=== PATIENT | male | born 1955 | race Caucasian/White ===

== ENCOUNTER 2016-12-03 17:42 | Emergency (ER) | payer OTHER ==
[2016-12-03 19:47] LABS: BASO % 0.5 % (0.0-1.0); EOS # 0.1 K/mm3 (0.0-0.50); EOS % 1.2 % (0.0-3.0); LARGE UNSTAINED CELL # 0.2 K/mm3 (0.0-0.4); LARGE UNSTAINED CELL % 2.1 % (0.0-4.0); LYMPH # 1.7 K/mm3 (1.5-4.5); MEAN CORPUSCULAR HEMOGLOBIN 30.4 pg (27.0-33.0); MEAN CORPUSCULAR VOLUME 86.6 fl (80.0-96.0); MONO # 0.6 K/mm3 (0.0-0.8); MONO % 7.5 % (0.0-5.0); NEUTROPHILS % 65.6 % (36.0-66.0); PLATELET COUNT, AUTOMATED 248 k/mm3 (150-450); RED CELL DISTRIBUTION WIDTH 12.2 % (11.5-14.5); WHITE BLOOD COUNT 7.6 K/mm3 (4.0-10.0)
[2016-12-03 20:20] LABS: ALBUMIN 4.2 GM/DL (3.2-5.2); ALBUMIN/GLOBULIN RATIO 1.08 (1.00-1.93); ALKALINE PHOSPHATASE 45 U/L (45-117); ALT/SGPT 33 U/L (12-78); ANION GAP 11 MEQ/L (8-16); AST/SGOT 23 U/L (15-37); BILIRUBIN,DIRECT 0.2 MG/DL (0.0-0.2); BILIRUBIN,TOTAL 0.8 MG/DL (0.2-1.0); BLOOD UREA NITROGEN 11 MG/DL (7-18); CALCIUM LEVEL 9.1 MG/DL (8.8-10.2); CARBON DIOXIDE LEVEL 23 MEQ/L (21-32); CHLORIDE LEVEL 105 MEQ/L (98-107); CREATININE FOR GFR 1.21 MG/DL (0.70-1.30); GLOMERULAR FILTRATION RATE > 60.0 (>49); GLUCOSE, FASTING 89 MG/DL (80-110); POTASSIUM SERUM 3.7 MEQ/L (3.5-5.1); SODIUM LEVEL 139 MEQ/L (136-145); TOTAL PROTEIN 8.1 GM/DL (6.4-8.2)
--- NOTE | 2016-12-03 21:07 | EDDOCDS ---
Physician Documentation [facility] Name: Sam Carrasquillo Age: 61 yrs Sex: Male : 1955 Arrival Date: 12/03/2016 Time: 17:42 Bed I2 / M2 Private MD: Oneida Disposition: 12/03/16 20:43 Discharged to Home/Self Care. Impression: Malaise and fatigue. - Condition is Stable. - Discharge Instructions: Dehydration, Adult, Weakness. - Medication Reconciliation, Local Pharmacy Hours form. - Follow up: Oneida; When: Call to arrange an appointment; Reason: Recheck today's complaints, Continuance of care. - Problem is new. - Symptoms are unchanged. Historical: - Allergies: Tttveov-Hft-Aeu Reductase Inhibitors; - Home Meds: 1. levothyroxine 50 mcg Oral tab 1 tab once daily - PMHx: Hypercholesterolemia; Hypertension; Hypothyroidism; - PSHx: Vasectomy; - Social history: Smoking status: Patient states was never smoker of tobacco. No barriers to communication noted, The patient speaks fluent Dominican, Speaks appropriately for age. - Family history: Not pertinent. - : The pt / caregiver states he / she is not on anticoagulants. Home medication list is obtained from the patient. - Exposure Risk Screening:: None identified. Vital Signs: 12/03 17:43 BP 147 / 91; Pulse 91; Resp 18 S; Temp 97.3(O); Pulse Ox 97% on R/A; Weight 145.15 kg / dd6 320 lbs (R); Height 5 ft. 8 in. (172.72 cm) (R); 20:57 BP 152 / 87; Pulse 68; Resp 18; Temp 98(O); Pulse Ox 96% on R/A; Pain 0/10; rs3 17:43 Body Mass Index 48.66 (145.15 kg, 172.72 cm) dd6 MDM: 19:12 Financial registration complete. gjb 19:12 IV Saline Lock ordered. mo1 19:12 Undress patient appropriately for examination ordered. mo1 19:12 NS 0.9% 1000 ml IV at bolus once ordered. mo1 19:13 Basic Metabolic Profile Ordered. EDMS 19:13 CBC with Diff Ordered. EDMS 19:13 Cardiac Injury Profile Ordered. EDMS 19:13 Troponin Ordered. EDMS 19:13 Liver Profile Ordered. EDMS 19:13 ECG WITH READING ER PHYS+CARDIAG ordered. EDMS 19:26 UA Ordered. EDMS 19:47 [facility] Payment Agreement was scanned into [employer] and attached to record. gjb 20:27 CBC with Diff Reviewed. mo1 20:27 Basic Metabolic Profile Reviewed. mo1 20:28 Cardiac Injury Profile Reviewed. mo1 20:28 Troponin Reviewed. mo1 20:28 Liver Profile Reviewed. mo1 20:29 UA Reviewed. mo1 Administered Medications: 19:40 Drug: NS 0.9% 1000 ml [sodium chloride 0.9 % intravenous solution] Route: IV; Rate: rs3 bolus; Site: right antecubital; Signatures: Dispatcher [employer] EDMS Meche Cannon RN RN rs3 Lauren Jurado RN RN hs1 Maurisio Bravo PA PA mo1 Elizabeth Andre The chart was reviewed and I authenticate all verbal orders and agree with the evaluation and treatment provided.Attachments: 19:47 [facility] Payment Agreement gjb MTDD
--- NOTE | 2016-12-03 21:07 | EDDOCDS ---
Nurse's Notes [facility] Name: Sam Carrasquillo Age: 61 yrs Sex: Male : 1955 Arrival Date: 12/03/2016 Time: 17:42 Bed I2 / M2 Private MD: Oneida Diagnosis: Malaise and fatigue Presentation: 12/03 17:47 Presenting complaint: Patient states: Dr Oconnor called patient to come in to be seen hs1 by ER. Patient states he was having problems with taking medication and was told his CPK was high. Patient was told that he needed to come be seen and evaluated. The last date and time the patient was known to be well was was at an unknown time on October 2016. No acute neurological deficit is noted. Pre-hospital glucose is not applicable to this patient. Adult Sepsis Screening: The patient does not have new or worsening altered mentation. Patient's respiratory rate is less than 22. Systolic blood pressure is greater than 100. Patient has a qSOFA score of 0- Negative Sepsis Screen. Suicide/Homicide risk assessment- the patient denies having any suicidal and/or homicidal ideations and does not present with any other emotional, behavioral or mental health complaints. Status: Patient is not a director financial services or dependent. Transition of care: patient was not received from another setting of care. 17:47 Acuity: SIN Level 3 hs1 17:47 Method Of Arrival: Walkin/Carried/Asstd hs1 Triage Assessment: 17:49 The onset of the patients symptoms was more than three hours ago. General: Appears in hs1 no apparent distress, Behavior is appropriate for age, cooperative. Pain: Denies pain. HIV screening NA for this visit Offered previously. Neurological: Level of Consciousness is awake, alert, obeys commands, Oriented to person, place, time, Energy Audit Advisor are equal bilaterally Moves all extremities. Gait is steady, Reports weakness "feeling lousy". Historical: - Allergies: Lhekhkc-Hsw-Yab Reductase Inhibitors; - Home Meds: 1. levothyroxine 50 mcg Oral tab 1 tab once daily - PMHx: Hypercholesterolemia; Hypertension; Hypothyroidism; - PSHx: Vasectomy; - Social history: Smoking status: Patient states was never smoker of tobacco. No barriers to communication noted, The patient speaks fluent Yoruba, Speaks appropriately for age. - Family history: Not pertinent. - : The pt / caregiver states he / she is not on anticoagulants. Home medication list is obtained from the patient. - Exposure Risk Screening:: None identified. Screenin:51 Screening information is obtained from the patient. Fall risk: No risks identified. rs3 Assistance ADL's: requires no assistance with activities of daily living. Abuse/DV Screen: The patient / caregiver reports he/she is: not in a situation that causes fear, pain or injury. Nutritional screening: No deficits noted. Advance Directives: Currently, there is no health care proxy. There is no active DNR order. home support is adequate. 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 Dalton, states that she requests IV hydration. ml6 19:41 General: Appears in no apparent distress, Behavior is appropriate for age, cooperative. rs3 Pain: Denies pain. Neurological: Level of Consciousness is awake, alert, Oriented to person, place, time. Cardiovascular: Capillary refill < 3 seconds Heart tones S1 S2 present. Respiratory: Airway is patent Respiratory effort is even, unlabored, Respiratory pattern is regular, symmetrical, Breath sounds are clear bilaterally. Derm: Skin is pink, warm & dry. 20:51 Reassessment: Patient appears in no apparent distress at this time. Patient denies pain rs3 at this time. Patient states feeling better. Patient states symptoms have improved. Vital Signs: 17:43 BP 147 / 91; Pulse 91; Resp 18 S; Temp 97.3(O); Pulse Ox 97% on R/A; Weight 145.15 kg dd6 (R); Height 5 ft. 8 in. (172.72 cm) (R); 20:57 BP 152 / 87; Pulse 68; Resp 18; Temp 98(O); Pulse Ox 96% on R/A; Pain 0/10; rs3 17:43 Body Mass Index 48.66 (145.15 kg, 172.72 cm) dd6 Vitals: 17:43 Log In Time: December 03, 2016 at 17:41. dd6 21:06 Glucose Measurement D-stick deferred by provider. rs3 ED Course: 17:43 Patient visited by Srinivas Mejia, JERILYN. dd6 17:43 Oneida is Private Physician. dd6 17:43 Patient moved to Waiting dd6 17:44 Patient moved to Pre RCE dd6 17:48 Triage Initiated hs1 18:58 Patient moved to Triage 3 pml 19:02 Maurisio Bravo PA is PHCP. mo1 19:02 Enrique Lyles DO is Attending Physician. mo1 19:03 Patient visited by Maurisio Bravo PA. mo1 19:13 Patient moved to I2 / M2 jmb 19:21 Patient visited by Pippa Sherman PCA. mary grace 19:21 EKG done. (by ED staff). Reviewed by Maurisio ANGELES. mary grace 19:40 Troponin Sent. rs3 19:40 Cardiac Injury Profile Sent. rs3 19:40 CBC with Diff Sent. rs3 19:40 Inserted saline lock: 20 gauge in right antecubital area and blood collected. rs3 19:41 Basic Metabolic Profile Sent. rs3 19:41 Liver Profile Sent. rs3 19:47 [facility] [place] [facility] Payment Agreement was scanned into [employer] and attached to record. gjb 20:08 Patient visited by Meche Cannon RN. rs3 20:08 UA Sent. rs3 20:43 Oneida is Referral Physician. mo1 20:51 No procedures done that require assistance. rs3 21:06 The patient / caregiver is instructed regarding the plan of care and ED course. rs3 Administered Medications: 19:40 Drug: NS 0.9% 1000 ml [sodium chloride 0.9 % intravenous solution] Route: IV; Rate: rs3 bolus; Site: right antecubital; Order Results: Lab Order: Basic Metabolic Profile; SPEC' 12/03/16 19:26 Test: GLUCOSE, FASTING; Value: 89; Range: 80-110; Units: MG/DL; Status: F Test: BLOOD UREA NITROGEN; Value: 11; Range: 7-18; Units: MG/DL; Status: F Test: CREATININE FOR GFR; Value: 1.21; Range: 0.70-1.30; Units: MG/DL; Status: F Test: GLOMERULAR FILTRATION RATE; Value: > 60.0; Range: >49; Status: F Test: SODIUM LEVEL; Value: 139; Range: 136-145; Units: MEQ/L; Status: F Test: POTASSIUM SERUM; Value: 3.7; Range: 3.5-5.1; Units: MEQ/L; Status: F Test: CHLORIDE LEVEL; Value: 105; Range: 98-107; Units: MEQ/L; Status: F Test: CARBON DIOXIDE LEVEL; Value: 23; Range: 21-32; Units: MEQ/L; Status: F Test: ANION GAP; Value: 11; Range: 8-16; Units: MEQ/L; Status: F Test: CALCIUM LEVEL; Value: 9.1; Range: 8.8-10.2; Units: MG/DL; Status: F Test Note: ; Units are mL/min/1.73 m2 Chronic Kidney Disease Staging per NKF: Stage I & II GFR >=60 Normal to Mildly Decreased Stage III GFR 30-59 Moderately Decreased Stage IV GFR 15-29 Severely Decreased Stage V GFR <15 Very Little GFR Left ESRD GFR <15 on 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 Lab Order: CBC with Diff; SPEC'M 12/03/16 19:26 Test: WHITE BLOOD COUNT; Value: 7.6; Range: 4.0-10.0; Units: K/mm3; Status: F Test: RED BLOOD COUNT; Value: 5.41; Range: 4.30-6.10; Units: M/mm3; Status: F Test: HEMOGLOBIN; Value: 16.4; Range: 14.0-18.0; Units: g/dl; Status: F Test: HEMATOCRIT; Value: 46.8; Range: 42.0-52.0; Units: %; Status: F Test: MEAN CORPUSCULAR VOLUME; Value: 86.6; Range: 80.0-96.0; Units: fl; Status: F Test: MEAN CORPUSCULAR HEMOGLOBIN; Value: 30.4; Range: 27.0-33.0; Units: pg; Status: F Test: MEAN CORPUSCULAR HGB CONC; Value: 35.0; Range: 32.0-36.5; Units: g/dl; Status: F Test: RED CELL DISTRIBUTION WIDTH; Value: 12.2; Range: 11.5-14.5; Units: %; Status: F Test: PLATELET COUNT, AUTOMATED; Value: 248; Range: 150-450; Units: k/mm3; Status: F Test: NEUTROPHILS %; Value: 65.6; Range: 36.0-66.0; Units: %; Status: F Test: LYMPH %; Value: 23.0; Range: 24.0-44.0; Abnormal: Below low normal; Units: %; Status: F Test: MONO %; Value: 7.5; Range: 0.0-5.0; Abnormal: Above high normal; Units: %; Status: F Test: EOS %; Value: 1.2; Range: 0.0-3.0; Units: %; Status: F Test: BASO %; Value: 0.5; Range: 0.0-1.0; Units: %; Status: F Test: LARGE UNSTAINED CELL %; Value: 2.1; Range: 0.0-4.0; Units: %; Status: F Test: NEUTROPHILS #; Value: 5.0; Range: 1.8-7.7; Units: K/mm3; Status: F Test: LYMPH #; Value: 1.7; Range: 1.5-4.5; Units: K/mm3; Status: F Test: MONO #; Value: 0.6; Range: 0.0-0.8; Units: K/mm3; Status: F Test: EOS #; Value: 0.1; Range: 0.0-0.50; Units: K/mm3; Status: F Test: BASO #; Value: 0.0; Range: 0.0-0.2; Units: K/mm3; Status: F Test: LARGE UNSTAINED CELL #; Value: 0.2; Range: 0.0-0.4; Units: K/mm3; Status: F Lab Order: Cardiac Injury Profile; SPEC'M 12/03/16 19:26 Test: CPK CREATINE PHOSPHOKINASE; Value: 205; Range: 39-308; Units: U/L; Status: F Test: CK-MB VALUE MASS; Value: 1.4; Range: 0.0-3.6; Units: NG/ML; Status: F Test: MB/CK RELATIVE INDEX; Value: 0.68; Range: < OR =4; Status: F Test Note: ; DIAGNOSIS CRITERIA MMB ng/ml Relative Index (RI) NON-AMI < or = 5 N/A JEAN ZONE > 5 < or = 4 AMI > 5 > 4 Lab Order: Troponin; SPEC'M 12/03/16 19:26 Test: TROPONIN I; Value: < 0.02; Range: < 0.10; Units: NG/ML; Status: F Test Note: ; Troponin I Reference Interval for [employer] [place] LOCI: 99th Percentile= 0.00-0.045 ng/ml Risk Stratification: <= 0.10 ng/ml Decreased Risk for Adverse Clinical Events. 0.10-1.50 ng/ml Increased Risk for Adverse Clinical Events. Evaluation of additional criterion and/or repeat testing in 2-6 hours is suggested to rule out myocardial damage. >= 1.50 ng/ml Indicative of Myocardial Injury. Lab Order: Liver Profile; SPEC'M 12/03/16 19:26 Test: AST/SGOT; Value: 23; Range: 15-37; Units: U/L; Status: F Test: ALT/SGPT; Value: 33; Range: 12-78; Units: U/L; Status: F Test: ALKALINE PHOSPHATASE; Value: 45; Range: 45-117; Units: U/L; Status: F Test: BILIRUBIN,TOTAL; Value: 0.8; Range: 0.2-1.0; Units: MG/DL; Status: F Test: BILIRUBIN,DIRECT; Value: 0.2; Range: 0.0-0.2; Units: MG/DL; Status: F Test: TOTAL PROTEIN; Value: 8.1; Range: 6.4-8.2; Units: GM/DL; Status: F Test: ALBUMIN; Value: 4.2; Range: 3.2-5.2; Units: GM/DL; Status: F Test: ALBUMIN/GLOBULIN RATIO; Value: 1.08; Range: 1.00-1.93; Status: F Lab Order: UA; SPEC'M 12/03/16 20:03 Test: APPEARANCE, URINE; Value: CLEAR; Range: CLEAR; Status: F Test: COLOR, URINE; Value: STRAW; Range: YELLOW; Status: F Test: PH,URINE; Value: 6.0; Range: 5.0-9.0; Units: UNITS; Status: F Test: SPECIFIC GRAVITY URINE AUTO; Value: 1.004; Range: 1.002-1.035; Status: F Test: PROTEIN, URINE AUTO; Value: NEGATIVE; Range: NEGATIVE; Units: mg/dL; Status: F Test: GLUCOSE, URINE (UA) AUTO; Value: NEGATIVE; Range: NEGATIVE; Units: mg/dL; Status: F Test: KETONE, URINE AUTO; Value: NEGATIVE; Range: NEGATIVE; Units: mg/dL; Status: F Test: UROBILINOGEN, URINE AUTO; Value: 0.2; Range: 0.0-2.0; Units: mg/dL; Status: F Test: BILIRUBIN, URINE AUTO; Value: NEGATIVE; Range: NEGATIVE; Status: F Test: NITRITE, URINE AUTO; Value: NEGATIVE; Range: NEGATIVE; Status: F Test: LEUKOCYTE ESTERASE, URINE AUTO; Value: NEGATIVE; Range: NEGATIVE; Status: F Test: BLOOD, URINE BLOOD; Value: NEGATIVE; Range: NEGATIVE; Status: F Test: WBC, URINE AUTO; Value: 0; Range: 0-3; Units: /HPF; Status: F Test: RBC, URINE AUTO; Value: 0; Range: 0-3; Units: /HPF; Status: F Test: BACTERIA, URINE AUTO; Value: NEGATIVE; Range: NEGATIVE; Status: F Test: SQUAMOUS EPITHELIAL CELL UR AU; Value: 0; Range: 0-6; Units: /HPF; Status: F Test: HYALINE CAST, URINE AUTO; Value: 0; Range: 0-1; Units: /LPF; Status: F Outcome: 20:43 Discharge ordered by Provider. mo1 21:06 Discharge Assessment: patient administered narcotics - no. The following High Risk rs3 Discharge criteria are identified: None. Discharged to home with family. Condition: stable. Discharge instructions given to patient, Instructed on discharge instructions, follow up and referral plans. medication usage, Demonstrated understanding of instructions, medications, Pt was receptive of discharge instructions/ teaching. No special radiology studies were completed. Property :Personal belongings accompany Pt. 21:07 Patient left the ED. rs3 Signatures: Srinivas Mejia, HEAT REGULATOR HEAT REGULATOR dd6 Meche Cannon RN RN rs3 Tristan Olivera RN RN ml6 Lauren Jurado RN RN hs1 Pippa Sherman, HEAT REGULATOR HEAT REGULATOR mary grace Haven Colin RN RN pml O'Hagan, Michael, PA PA mo1 Kirit Hickman RN RN jmb Beck, Gabriela gjb MTDD
--- NOTE | 2016-12-03 22:05 | ECGEPIP ---
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
--- NOTE | 2016-12-05 22:08 | EDDOCDS ---
Physician Documentation [facility] Name: Sam Carrasquillo Age: 61 yrs Sex: Male : 1955 Arrival Date: 12/03/2016 Time: 17:42 Bed I2 / M2 Private MD: Oneida Disposition: 12/03/16 20:43 Discharged to Home/Self Care. Impression: Malaise and fatigue. - Condition is Stable. - Discharge Instructions: Dehydration, Adult, Weakness. - Medication Reconciliation, Local Pharmacy Hours form. - Follow up: Oneida; When: Call to arrange an appointment; Reason: Recheck today's complaints, Continuance of care. - Problem is new. - Symptoms are unchanged. Historical: - Allergies: Ovoltxj-Ycu-Gso Reductase Inhibitors; - Home Meds: 1. levothyroxine 50 mcg Oral tab 1 tab once daily - PMHx: Hypercholesterolemia; Hypertension; Hypothyroidism; - PSHx: Vasectomy; - Social history: Smoking status: Patient states was never smoker of tobacco. No barriers to communication noted, The patient speaks fluent Wallisian, Speaks appropriately for age. - Family history: Not pertinent. - : The pt / caregiver states he / she is not on anticoagulants. Home medication list is obtained from the patient. - Exposure Risk Screening:: None identified. Vital Signs: 12/03 17:43 BP 147 / 91; Pulse 91; Resp 18 S; Temp 97.3(O); Pulse Ox 97% on R/A; Weight 145.15 kg / dd6 320 lbs (R); Height 5 ft. 8 in. (172.72 cm) (R); 20:57 BP 152 / 87; Pulse 68; Resp 18; Temp 98(O); Pulse Ox 96% on R/A; Pain 0/10; rs3 17:43 Body Mass Index 48.66 (145.15 kg, 172.72 cm) dd6 MDM: 19:12 Financial registration complete. gjb 19:12 IV Saline Lock ordered. mo1 19:12 Undress patient appropriately for examination ordered. mo1 19:12 NS 0.9% 1000 ml IV at bolus once ordered. mo1 19:13 Basic Metabolic Profile Ordered. EDMS 19:13 CBC with Diff Ordered. EDMS 19:13 Cardiac Injury Profile Ordered. EDMS 19:13 Troponin Ordered. EDMS 19:13 Liver Profile Ordered. EDMS 19:13 ECG WITH READING ER PHYS+CARDIAG ordered. EDMS 19:26 UA Ordered. EDMS 19:47 [facility] Payment Agreement was scanned into [employer] and attached to record. gjb 20:27 CBC with Diff Reviewed. mo1 20:27 Basic Metabolic Profile Reviewed. mo1 20:28 Cardiac Injury Profile Reviewed. mo1 20:28 Troponin Reviewed. mo1 20:28 Liver Profile Reviewed. mo1 20:29 UA Reviewed. mo1 12/04 12:41 T-Sheet-- Draft Copy was scanned into [employer] and attached to record. gb 12:41 ECG/EKG was scanned into [employer] and attached to record. gb Administered Medications: 12/03 19:40 Drug: NS 0.9% 1000 ml [sodium chloride 0.9 % intravenous solution] Route: IV; Rate: rs3 bolus; Site: right antecubital; Signatures: Dispatcher [employer] EDMS Roseann Tanner, Reg Reg gb Meche Cannon RN RN rs3 Lauren Jurado RN RN hs1 Maurisio Bravo PA PA mo1 Elizabeth Andre The chart was reviewed and I authenticate all verbal orders and agree with the evaluation and treatment provided.Attachments: :47 [facility] Payment Agreement gjb 12/04 12:41 T-Sheet-- Draft Copy gb 12:41 ECG/EKG gb Chart Complete MTDD
--- NOTE | 2016-12-05 22:08 | EDDOCDS ---
Nurse's Notes [facility] Name: Caren Liu Age: 61 yrs Sex: Male : 1955 Arrival Date: 12/03/2016 Time: 17:42 Bed I2 / M2 Private MD: Oneida Diagnosis: Malaise and fatigue Presentation: 12/03 17:47 Presenting complaint: Patient states: Dr Oconnor called patient to come in to be seen hs1 by ER. Patient states he was having problems with taking medication and was told his CPK was high. Patient was told that he needed to come be seen and evaluated. The last date and time the patient was known to be well was was at an unknown time on October 2016. No acute neurological deficit is noted. Pre-hospital glucose is not applicable to this patient. Adult Sepsis Screening: The patient does not have new or worsening altered mentation. Patient's respiratory rate is less than 22. Systolic blood pressure is greater than 100. Patient has a qSOFA score of 0- Negative Sepsis Screen. Suicide/Homicide risk assessment- the patient denies having any suicidal and/or homicidal ideations and does not present with any other emotional, behavioral or mental health complaints. Status: Patient is not a center customer service associate or dependent. Transition of care: patient was not received from another setting of care. 17:47 Acuity: SIN Level 3 hs1 17:47 Method Of Arrival: Walkin/Carried/Asstd hs1 Triage Assessment: 17:49 The onset of the patients symptoms was more than three hours ago. General: Appears in hs1 no apparent distress, Behavior is appropriate for age, cooperative. Pain: Denies pain. HIV screening NA for this visit Offered previously. Neurological: Level of Consciousness is awake, alert, obeys commands, Oriented to person, place, time, Dean Of Women are equal bilaterally Moves all extremities. Gait is steady, Reports weakness "feeling lousy". Historical: - Allergies: Rxweydh-Hlx-Uil Reductase Inhibitors; - Home Meds: 1. levothyroxine 50 mcg Oral tab 1 tab once daily - PMHx: Hypercholesterolemia; Hypertension; Hypothyroidism; - PSHx: Vasectomy; - Social history: Smoking status: Patient states was never smoker of tobacco. No barriers to communication noted, The patient speaks fluent Danish, Speaks appropriately for age. - Family history: Not pertinent. - : The pt / caregiver states he / she is not on anticoagulants. Home medication list is obtained from the patient. - Exposure Risk Screening:: None identified. Screenin:51 Screening information is obtained from the patient. Fall risk: No risks identified. rs3 Assistance ADL's: requires no assistance with activities of daily living. Abuse/DV Screen: The patient / caregiver reports he/she is: not in a situation that causes fear, pain or injury. Nutritional screening: No deficits noted. Advance Directives: Currently, there is no health care proxy. There is no active DNR order. home support is adequate. 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 ml6 19:41 General: Appears in no apparent distress, Behavior is appropriate for age, cooperative. rs3 Pain: Denies pain. Neurological: Level of Consciousness is awake, alert, Oriented to person, place, time. Cardiovascular: Capillary refill < 3 seconds Heart tones S1 S2 present. Respiratory: Airway is patent Respiratory effort is even, unlabored, Respiratory pattern is regular, symmetrical, Breath sounds are clear bilaterally. Derm: Skin is pink, warm & dry. 20:51 Reassessment: Patient appears in no apparent distress at this time. Patient denies pain rs3 at this time. Patient states feeling better. Patient states symptoms have improved. Vital Signs: 17:43 BP 147 / 91; Pulse 91; Resp 18 S; Temp 97.3(O); Pulse Ox 97% on R/A; Weight 145.15 kg dd6 (R); Height 5 ft. 8 in. (172.72 cm) (R); 20:57 BP 152 / 87; Pulse 68; Resp 18; Temp 98(O); Pulse Ox 96% on R/A; Pain 0/10; rs3 17:43 Body Mass Index 48.66 (145.15 kg, 172.72 cm) dd6 Vitals: 17:43 Log In Time: December 03, 2016 at 17:41. dd6 21:06 Glucose Measurement D-stick deferred by provider. rs3 ED Course: 17:43 Patient visited by Srinivas Mejia, JERILYN. dd6 17:43 Oneida is Private Physician. dd6 17:43 Patient moved to Waiting dd6 17:44 Patient moved to Pre RCE dd6 17:48 Triage Initiated hs1 18:58 Patient moved to Triage 3 pml 19:02 Dakotah Bravo PA is PHCP. mo1 19:02 Enrique Lyles DO is Attending Physician. mo1 19:03 Patient visited by Dakotah Bravo PA. mo1 19:13 Patient moved to I2 / M2 jmb 19:21 Patient visited by Pippa Sherman PCA. mary grace 19:21 EKG done. (by ED staff). Reviewed by Dakotah ANGELES. mary grace 19:40 Troponin Sent. rs3 19:40 Cardiac Injury Profile Sent. rs3 19:40 CBC with Diff Sent. rs3 19:40 Inserted saline lock: 20 gauge in right antecubital area and blood collected. rs3 19:41 Basic Metabolic Profile Sent. rs3 19:41 Liver Profile Sent. rs3 19:47 [facility] Payment Agreement was scanned into [employer] and attached to record. gjb 20:08 Patient visited by Meche Cannon RN. rs3 20:08 UA Sent. rs3 20:43 Oneida is Referral Physician. mo1 20:51 No procedures done that require assistance. rs3 21:06 The patient / caregiver is instructed regarding the plan of care and ED course. rs3 22:08 EKG-ADULT Returned. EDMS 12/04 12:41 T-Sheet-- Draft Copy was scanned into [employer] and attached to record. gb 12:41 ECG/EKG was scanned into [employer] and attached to record. gb Administered Medications: 12/03 19:40 Drug: NS 0.9% 1000 ml [sodium chloride 0.9 % intravenous solution] Route: IV; Rate: rs3 bolus; Site: right antecubital; Order Results: Lab Order: Basic Metabolic Profile; SPEC'M 12/03/16 19:26 Test: GLUCOSE, FASTING; Value: 89; Range: 80-110; Units: MG/DL; Status: F Test: BLOOD UREA NITROGEN; Value: 11; Range: 7-18; Units: MG/DL; Status: F Test: CREATININE FOR GFR; Value: 1.21; Range: 0.70-1.30; Units: MG/DL; Status: F Test: GLOMERULAR FILTRATION RATE; Value: > 60.0; Range: >49; Status: F Test: SODIUM LEVEL; Value: 139; Range: 136-145; Units: MEQ/L; Status: F Test: POTASSIUM SERUM; Value: 3.7; Range: 3.5-5.1; Units: MEQ/L; Status: F Test: CHLORIDE LEVEL; Value: 105; Range: 98-107; Units: MEQ/L; Status: F Test: CARBON DIOXIDE LEVEL; Value: 23; Range: 21-32; Units: MEQ/L; Status: F Test: ANION GAP; Value: 11; Range: 8-16; Units: MEQ/L; Status: F Test: CALCIUM LEVEL; Value: 9.1; Range: 8.8-10.2; Units: MG/DL; Status: F Test Note: ; Units are mL/min/1.73 m2 Chronic Kidney Disease Staging per NKF: Stage I & II GFR >=60 Normal to Mildly Decreased Stage III GFR 30-59 Moderately Decreased Stage IV GFR 15-29 Severely Decreased Stage V GFR <15 Very Little GFR Left ESRD GFR <15 on [employer] Lab Order: CBC with Diff; SPEC'M 12/03/16 19:26 Test: WHITE BLOOD COUNT; Value: 7.6; Range: 4.0-10.0; Units: K/mm3; Status: F Test: RED BLOOD COUNT; Value: 5.41; Range: 4.30-6.10; Units: M/mm3; Status: F Test: HEMOGLOBIN; Value: 16.4; Range: 14.0-18.0; Units: g/dl; Status: F Test: HEMATOCRIT; Value: 46.8; Range: 42.0-52.0; Units: %; Status: F Test: MEAN CORPUSCULAR VOLUME; Value: 86.6; Range: 80.0-96.0; Units: fl; Status: F Test: MEAN CORPUSCULAR HEMOGLOBIN; Value: 30.4; Range: 27.0-33.0; Units: pg; Status: F Test: MEAN CORPUSCULAR HGB CONC; Value: 35.0; Range: 32.0-36.5; Units: g/dl; Status: F Test: RED CELL DISTRIBUTION WIDTH; Value: 12.2; Range: 11.5-14.5; Units: %; Status: F Test: PLATELET COUNT, AUTOMATED; Value: 248; Range: 150-450; Units: k/mm3; Status: F Test: NEUTROPHILS %; Value: 65.6; Range: 36.0-66.0; Units: %; Status: F Test: LYMPH %; Value: 23.0; Range: 24.0-44.0; Abnormal: Below low normal; Units: %; Status: F Test: MONO %; Value: 7.5; Range: 0.0-5.0; Abnormal: Above high normal; Units: %; Status: F Test: EOS %; Value: 1.2; Range: 0.0-3.0; Units: %; Status: F Test: BASO %; Value: 0.5; Range: 0.0-1.0; Units: %; Status: F Test: LARGE UNSTAINED CELL %; Value: 2.1; Range: 0.0-4.0; Units: %; Status: F Test: NEUTROPHILS #; Value: 5.0; Range: 1.8-7.7; Units: K/mm3; Status: F Test: LYMPH #; Value: 1.7; Range: 1.5-4.5; Units: K/mm3; Status: F Test: MONO #; Value: 0.6; Range: 0.0-0.8; Units: K/mm3; Status: F Test: EOS #; Value: 0.1; Range: 0.0-0.50; Units: K/mm3; Status: F Test: BASO #; Value: 0.0; Range: 0.0-0.2; Units: K/mm3; Status: F Test: LARGE UNSTAINED CELL #; Value: 0.2; Range: 0.0-0.4; Units: K/mm3; Status: F Lab Order: Cardiac Injury Profile; SPEC'M 12/03/16 19:26 Test: CPK CREATINE PHOSPHOKINASE; Value: 205; Range: 39-308; Units: U/L; Status: F Test: CK-MB VALUE MASS; Value: 1.4; Range: 0.0-3.6; Units: NG/ML; Status: F Test: MB/CK RELATIVE INDEX; Value: 0.68; Range: < OR =4; Status: F Test Note: ; DIAGNOSIS CRITERIA MMB ng/ml Relative Index (RI) NON-AMI < or = 5 N/A JEAN ZONE > 5 < or = 4 AMI > 5 > 4 Lab Order: Troponin; [facility]' 12/03/16 19:26 Test: TROPONIN I; Value: < 0.02; Range: < 0.10; Units: NG/ML; Status: F Test Note: ; Troponin I Reference Interval for Siemens Vaultize LOCI: 99th Percentile= 0.00-0.045 ng/ml Risk Stratification: <= 0.10 ng/ml Decreased Risk for Adverse Clinical Events. 0.10-1.50 ng/ml Increased Risk for Adverse Clinical Events. Evaluation of additional criterion and/or repeat testing in 2-6 hours is suggested to rule out myocardial damage. >= 1.50 ng/ml Indicative of Myocardial Injury. Lab Order: Liver Profile; SPEC' 12/03/16 19:26 Test: AST/SGOT; Value: 23; Range: 15-37; Units: U/L; Status: F Test: ALT/SGPT; Value: 33; Range: 12-78; Units: U/L; Status: F Test: ALKALINE PHOSPHATASE; Value: 45; Range: 45-117; Units: U/L; Status: F Test: BILIRUBIN,TOTAL; Value: 0.8; Range: 0.2-1.0; Units: MG/DL; Status: F Test: BILIRUBIN,DIRECT; Value: 0.2; Range: 0.0-0.2; Units: MG/DL; Status: F Test: TOTAL PROTEIN; Value: 8.1; Range: 6.4-8.2; Units: GM/DL; Status: F Test: ALBUMIN; Value: 4.2; Range: 3.2-5.2; Units: GM/DL; Status: F Test: ALBUMIN/GLOBULIN RATIO; Value: 1.08; Range: 1.00-1.93; Status: F Lab Order: UA; SPEC' 12/03/16 20:03 Test: APPEARANCE, URINE; Value: CLEAR; Range: CLEAR; Status: F Test: COLOR, URINE; Value: STRAW; Range: YELLOW; Status: F Test: PH,URINE; Value: 6.0; Range: 5.0-9.0; Units: UNITS; Status: F Test: SPECIFIC GRAVITY URINE AUTO; Value: 1.004; Range: 1.002-1.035; Status: F Test: PROTEIN, URINE AUTO; Value: NEGATIVE; Range: NEGATIVE; Units: mg/dL; Status: F Test: GLUCOSE, URINE (UA) AUTO; Value: NEGATIVE; Range: NEGATIVE; Units: mg/dL; Status: F Test: KETONE, URINE AUTO; Value: NEGATIVE; Range: NEGATIVE; Units: mg/dL; Status: F Test: UROBILINOGEN, URINE AUTO; Value: 0.2; Range: 0.0-2.0; Units: mg/dL; Status: F Test: BILIRUBIN, URINE AUTO; Value: NEGATIVE; Range: NEGATIVE; Status: F Test: NITRITE, URINE AUTO; Value: NEGATIVE; Range: NEGATIVE; Status: F Test: LEUKOCYTE ESTERASE, URINE AUTO; Value: NEGATIVE; Range: NEGATIVE; Status: F Test: BLOOD, URINE BLOOD; Value: NEGATIVE; Range: NEGATIVE; Status: F Test: WBC, URINE AUTO; Value: 0; Range: 0-3; Units: /HPF; Status: F Test: RBC, URINE AUTO; Value: 0; Range: 0-3; Units: /HPF; Status: F Test: BACTERIA, URINE AUTO; Value: NEGATIVE; Range: NEGATIVE; Status: F Test: SQUAMOUS EPITHELIAL CELL UR AU; Value: 0; Range: 0-6; Units: /HPF; Status: F Test: HYALINE CAST, URINE AUTO; Value: 0; Range: 0-1; Units: /LPF; Status: F Radiology Order: EKG-ADULT Test: EKG-ADULT REASON FOR EXAMINATION: generalized weakness; Stationary ECG Study; [facility] - ED; ; Test Date: 2016-12-03; Pat Name: CAREN LIU Department:; Room: -; Gender: M 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 mo1 21:06 Discharge Assessment: patient administered narcotics - no. The following High Risk rs3 Discharge criteria are identified: None. Discharged to home with family. Condition: stable. Discharge instructions given to patient, Instructed on discharge instructions, follow up and referral plans. medication usage, Demonstrated understanding of instructions, medications, Pt was receptive of discharge instructions/ teaching. No special radiology studies were completed. Property :Personal belongings accompany Pt. 21:07 Patient left the ED. rs3 Signatures: Dispatcher [employer] EDMS Roseann Tanner, Reg Reg gb Srinivas Mejia, REMELTER REMELTER dd6 Meche Cannon,RN RN rs3 Tristan Olivera RN RN ml6 Lauren Jurado RN RN hs1 Pippa Sherman, REMELTER REMELTER mary grace Haven ColinRN RN Dakotah Isaacs PA PA mo1 Kirit Hickman RN RN jmb Beck, Gabriela gjb Chart Complete DAVIS
--- NOTE | 2016-12-05 22:08 | EDDOCDS ---
Physician Documentation [facility] Name: Sam Carrasquillo Age: 61 yrs Sex: Male : 1955 Arrival Date: 12/03/2016 Time: 17:42 Bed I2 / M2 Private MD: Oneida Disposition: 12/03/16 20:43 Discharged to Home/Self Care. Impression: Malaise and fatigue. - Condition is Stable. - Discharge Instructions: Dehydration, Adult, Weakness. - Medication Reconciliation, Local Pharmacy Hours form. - Follow up: Oneida; When: Call to arrange an appointment; Reason: Recheck today's complaints, Continuance of care. - Problem is new. - Symptoms are unchanged. Historical: - Allergies: Fmngusy-Nbx-Pxs Reductase Inhibitors; - Home Meds: 1. levothyroxine 50 mcg Oral tab 1 tab once daily - PMHx: Hypercholesterolemia; Hypertension; Hypothyroidism; - PSHx: Vasectomy; - Social history: Smoking status: Patient states was never smoker of tobacco. No barriers to communication noted, The patient speaks fluent Kazakh, Speaks appropriately for age. - Family history: Not pertinent. - : The pt / caregiver states he / she is not on anticoagulants. Home medication list is obtained from the patient. - Exposure Risk Screening:: None identified. Vital Signs: 12/03 17:43 BP 147 / 91; Pulse 91; Resp 18 S; Temp 97.3(O); Pulse Ox 97% on R/A; Weight 145.15 kg / dd6 320 lbs (R); Height 5 ft. 8 in. (172.72 cm) (R); 20:57 BP 152 / 87; Pulse 68; Resp 18; Temp 98(O); Pulse Ox 96% on R/A; Pain 0/10; rs3 17:43 Body Mass Index 48.66 (145.15 kg, 172.72 cm) dd6 MDM: 19:12 Financial registration complete. gjb 19:12 IV Saline Lock ordered. mo1 19:12 Undress patient appropriately for examination ordered. mo1 19:12 NS 0.9% 1000 ml IV at bolus once ordered. mo1 19:13 Basic Metabolic Profile Ordered. EDMS 19:13 CBC with Diff Ordered. EDMS 19:13 Cardiac Injury Profile Ordered. EDMS 19:13 Troponin Ordered. EDMS 19:13 Liver Profile Ordered. EDMS 19:13 ECG WITH READING ER PHYS+CARDIAG ordered. EDMS 19:26 UA Ordered. EDMS 19:47 [facility] Payment Agreement was scanned into [employer] and attached to record. gjb 20:27 CBC with Diff Reviewed. mo1 20:27 Basic Metabolic Profile Reviewed. mo1 20:28 Cardiac Injury Profile Reviewed. mo1 20:28 Troponin Reviewed. mo1 20:28 Liver Profile Reviewed. mo1 20:29 UA Reviewed. mo1 12/04 12:41 T-Sheet-- Draft Copy was scanned into [employer] and attached to record. gb 12:41 ECG/EKG was scanned into [employer] and attached to record. gb Administered Medications: 12/03 19:40 Drug: NS 0.9% 1000 ml [sodium chloride 0.9 % intravenous solution] Route: IV; Rate: rs3 bolus; Site: right antecubital; Signatures: Dispatcher [employer] EDMS Roseann Tanner, Reg Reg gb Meche Cannon RN RN rs3 Lauren Jurado RN RN hs1 Maurisio Bravo PA PA mo1 Elizabeth Andre The chart was reviewed and I authenticate all verbal orders and agree with the evaluation and treatment provided.Attachments: :47 [facility] Payment Agreement gjb 12/04 12:41 T-Sheet-- Draft Copy gb 12:41 ECG/EKG gb Chart Complete MTDD
== END 2016-12-03 21:07 | disposition home or self-care (01) ==
LOC: M ED 17:42
DX: R53.81 Other malaise (principal); R53.83 Other fatigue; I10 Essential (primary) hypertension; E03.9 Hypothyroidism, unspecified; E78.00 Pure hypercholesterolemia, unspecified; Z79.899 Other long term (current) drug therapy; Z88.8 Allergy status to other drugs, medicaments and biological substances

== ENCOUNTER → 2016-12-11 | Outpatient (CLI) | payer OTHER ==
[2016-12-11 14:18] LABS: CONTROL LINE MONO INT CTR LINE PRESENT
[2016-12-11 14:33] LABS: FREE T4 1.29 NG/DL (0.76-1.46)
[2016-12-13 00:06] LABS: CK TOTAL 150 U/L (24-204)
== END ==
LOC: M SMT 09:55
PROVIDERS: ATTEND Family Medicine
DX: E03.9 Hypothyroidism, unspecified (principal); N40.0 Benign prostatic hyperplasia without lower urinary tract symptoms; R63.4 Abnormal weight loss; M62.82 Rhabdomyolysis

== ENCOUNTER 2016-12-31 14:42 | Emergency (ER) | payer OTHER ==
[~2016-12-31] VITALS: Ht 172.7 cm; Wt 136.1 kg
[2016-12-31 16:46] LABS: BASO % 0.6 % (0.0-1.0); EOS # 0.1 K/mm3 (0.0-0.50); EOS % 1.8 % (0.0-3.0); LARGE UNSTAINED CELL # 0.1 K/mm3 (0.0-0.4); LARGE UNSTAINED CELL % 1.6 % (0.0-4.0); LYMPH # 1.5 K/mm3 (1.5-4.5); LYMPH % 18.3 % (24.0-44.0); MEAN CORPUSCULAR HEMOGLOBIN 30.6 pg (27.0-33.0); MEAN CORPUSCULAR HGB CONC 34.9 g/dl (32.0-36.5); MEAN CORPUSCULAR VOLUME 87.7 fl (80.0-96.0); MONO # 0.5 K/mm3 (0.0-0.8); MONO % 7.2 % (0.0-5.0); NEUTROPHILS # 5.3 K/mm3 (1.8-7.7); NEUTROPHILS % 70.4 % (36.0-66.0); PLATELET COUNT, AUTOMATED 215 k/mm3 (150-450); RED CELL DISTRIBUTION WIDTH 12.5 % (11.5-14.5); WHITE BLOOD COUNT 7.5 K/mm3 (4.0-10.0)
[2016-12-31 17:11] LABS: ALBUMIN 3.9 GM/DL (3.2-5.2); ALBUMIN/GLOBULIN RATIO 1.15 (1.00-1.93); ALKALINE PHOSPHATASE 57 U/L (45-117); ALT/SGPT 20 U/L (12-78); ANION GAP 12 MEQ/L (8-16); AST/SGOT 21 U/L (15-37); BILIRUBIN,DIRECT 0.2 MG/DL (0.0-0.2); BILIRUBIN,TOTAL 0.8 MG/DL (0.2-1.0); BLOOD UREA NITROGEN 10 MG/DL (7-18); CARBON DIOXIDE LEVEL 23 MEQ/L (21-32); CHLORIDE LEVEL 107 MEQ/L (98-107); CREATININE FOR GFR 1.08 MG/DL (0.70-1.30); GLOMERULAR FILTRATION RATE > 60.0 (>49); GLUCOSE, FASTING 100 MG/DL (80-110); POTASSIUM SERUM 3.7 MEQ/L (3.5-5.1); SODIUM LEVEL 142 MEQ/L (136-145); TOTAL PROTEIN 7.3 GM/DL (6.4-8.2)
[2016-12-31 17:16] LABS: T UPTAKE 32 % (33-40)
[2016-12-31] MEDS ORDERED: ISOVUE-370 76% 100ML VIAL (Q9967) As Ordered ONE (17:57)
--- NOTE | 2016-12-31 18:23 | REP ---
Clinical: Headache and weakness . Comparison: None . Findings: The ventricles, sulci, and cisterns are normal in position and appearance. Greenfield-white differentiation is maintained. No acute intracranial hemorrhage, mass/mass effect, pathology or trauma/injury. No evidence for acute infarction. No extra-axial fluid collection. Calvarium is intact. Paranasal sinuses and mastoid air cells are clear. Impression: Normal noncontrast head CT. No evidence for acute intracranial pathology or trauma/injury. Signed by Robinson Singh MD 12/31/2016 06:14 P
--- NOTE | 2016-12-31 18:28 | REP ---
Clinical: Acute chest pain and shortness of breath. Technique: Axial contrast enhanced images from the thoracic inlet to the upper abdomen using 100 ml Isovue 370 intravenous contrast material with coronal and sagittal re-formations. Findings: Satisfactory enhancement of the pulmonary vasculature is achieved. Pulmonary emboli are identified within the second order pulmonary arteries extending to the right lower lobe (images 90 - 110) as well as small focus of embolus extending to the medial right middle lobe (image 81) and smaller distal branch emboli to the left lower lobe (images 99 - 110). No associated consolidation, atelectasis, or pleural effusion. Mild cardiomegaly suggested. Thoracic aorta is normal and without aneurysm or dissection. No pericardial effusion noted. No adenopathy. Surrounding musculoskeletal structures are intact. Impression: 1. Pulmonary emboli predominate within the second order right lower lobe pulmonary arteries and to a lesser extent small focus extending to the right middle lobe and distal left lower lobe branches. No associated pulmonary parenchymal consolidation, atelectasis, or pleural effusion. 2. Cardiomegaly. Normal thoracic aorta. Signed by Robinson Singh MD 12/31/2016 06:19 P
[2016-12-31] MEDS ORDERED: VITA100066 PO (19:25)
[2016-12-31] MEDS ORDERED: OMEP40CA2 PO (19:25)
[2016-12-31] MEDS ORDERED: APIXABAN 5 MG TAB (ELIQUIS) As Ordered ONE (20:11)
--- NOTE | 2016-12-31 20:23 | ECGEPIP ---
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
--- NOTE | 2016-12-31 20:26 | EDDOCDS ---
Physician Documentation [facility] Name: Sam Carrasquillo Age: 61 yrs Sex: Male : 1955 Arrival Date: 12/31/2016 Time: 14:42 Bed 1 Private MD: Oneida Disposition: 12/31/16 20:04 Discharged to Home/Self Care. Impression: Pulmonary embolism. - Condition is Stable. - Discharge Instructions: Pulmonary Embolism. - Medication Reconciliation form. - Follow up: Oneida; When: Tomorrow; Reason: Wound/Symptom Recheck, Recheck today's complaints, Worsening of conditions, Continuance of care. - Problem is chronic. - Symptoms have improved. Historical: - Allergies: Wqzmadl-Mtf-Cpp Reductase Inhibitors; - Home Meds: 1. Prilosec 40 mg Oral cpDR 1 cap once daily 2. levothyroxine 50 mcg Oral tab 1 tab once daily (Last dose: 11/29/2016) - PMHx: Hypercholesterolemia; Hypertension; Hypothyroidism; - PSHx: none; - Social history: Smoking status: Patient states was never smoker of tobacco. No barriers to communication noted, The patient speaks fluent Estonian, Speaks appropriately for age. - Family history: Not pertinent. - : The pt / caregiver states he / she is not on anticoagulants. Home medication list is obtained from the patient. - Exposure Risk Screening:: None identified. Vital Signs: 12/31 14:44 BP 133 / 104 RA Sitting (auto/reg); Pulse 99; Resp 18; Temp 97.3; Pulse Ox 97% on R/A; jrd Weight 136.08 kg / 300.01 lbs (R); Height 5 ft. 8 in. (172.72 cm) (R); Pain 3/10; 14:48 BP 139 / 89 RA Sitting (man/lg); jrd 19:00 BP 153 / 93 (auto/); kas2 19:00 Pulse 64 MON; Pulse Ox 97% ; kas2 19:29 Resp 18; Temp 97.9(O); Pain 0/10; kas2 20:24 BP 158 / 88; Pulse 65; Resp 18; Temp 98.0(O); Pulse Ox 99% on R/A; Pain 0/10; kas2 14:44 Body Mass Index 45.61 (136.08 kg, 172.72 cm) jrd MDM: 15:21 ECG WITH READING ER PHYS+CARDIAG ordered. EDMS 16:04 NS 0.9% 1000 ml IV at bolus once ordered. cc10 16:04 IV Saline Lock ordered. cc10 16:04 Undress patient appropriately for examination ordered. cc10 16:05 Basic Metabolic Profile Ordered. EDMS 16:05 CBC with Diff Ordered. EDMS 16:05 Cardiac Injury Profile Ordered. EDMS 16:05 Lipase Ordered. EDMS 16:05 Liver Profile Ordered. EDMS 16:05 Troponin Ordered. EDMS 16:05 Urinalysis Ordered. EDMS 16:05 D-Dimer Quant Ordered. EDMS 16:06 NOTHING BY MOUTH+DIET ordered. EDMS 16:09 THYROID PROFILE Ordered. EDMS 16:56 Financial registration complete. zo 17:09 [facility] Payment Agreement was scanned into [employer] and attached to record. zo 17:44 CBC with Diff Reviewed. cc10 17:44 Urinalysis Reviewed. cc10 17:44 THYROID PROFILE Reviewed. cc10 17:44 Basic Metabolic Profile Reviewed. cc10 17:44 Cardiac Injury Profile Reviewed. cc10 17:44 Lipase Reviewed. cc10 17:44 Liver Profile Reviewed. cc10 17:44 Troponin Reviewed. cc10 17:50 D-Dimer Quant Reviewed. cc10 17:56 CT Head Without Contrast Ordered. EDMS 17:56 CT Chest Angio R/O PE Ordered. EDMS 18:37 BED REQUEST+ADM ordered. EDMS 19:45 ANTI THROMBIN 3 PANEL (AG/AC) Ordered. EDMS 19:45 FACTOR V LEIDEN Ordered. EDMS 19:45 HEPARIN LEVEL Ordered. EDMS 19:45 Lupus Type Anticoagulant Ordered. EDMS 19:45 PROTEIN C FUNCTIONAL ACTIVITY Ordered. EDMS 19:46 PROTEIN S FUNCTIONAL ACTIVITY Ordered. EDMS 19:46 FACTOR II PROTHROMBIN GENE AN Ordered. EDMS 19:46 ANTINUCLEAR ANTIBODIES Ordered. EDMS 19:46 C REACTIVE PROTEIN QUANTITATIV Ordered. EDMS 19:46 ANTI-CARDIOLIPIN ANTIBODIES Ordered. EDMS 20:03 Apixaban 10 mg PO once ordered. cc10 20:13 Physician consultation: Dr. Quesada in to see patient in the ER, he reviewed the cc10 records and discussed the case with his PCP, he is comfortable discharging the patient on eliquis. He will see his PCP tomorrow for a recheck. Strict return instructions given to patient and family. They understand and agree with the plan. . 20:22 FIBRINOGEN Ordered. EDMS Administered Medications: 16:17 Drug: NS 0.9% 1000 ml [sodium chloride 0.9 % intravenous solution] Route: IV; Rate: mk4 bolus; Site: right antecubital; 20:23 Drug: Apixaban 10 mg [apixaban 2.5 mg tablet (4 tabs)] Route: PO; kas2 Signatures: Dispatcher [employer] EDMS Titi Barreto Paulina,RN RN pml Shira Bianchi RN RN mk4 Shoaib Villalobos PA-C PA-C cc10 Ekta WellingtonRN RN kas2 The chart was reviewed and I authenticate all verbal orders and agree with the evaluation and treatment provided.Corrections: (The following items were deleted from the chart) 16:09 16:07 THYROID PROFILE+LAB ordered. EDMS EDMS 20:24 19:45 FIBRINOGEN ordered. EDMS EDMS Attachments: 17:09 [facility] Payment Agreement zo MTDD
--- NOTE | 2016-12-31 20:27 | EDDOCDS ---
Nurse's Notes [facility] Name: Sam Carrasquillo Age: 61 yrs Sex: Male : 1955 Arrival Date: 12/31/2016 Time: 14:42 Bed 1 Private MD: Oneida Diagnosis: Pulmonary embolism Presentation: 12/31 14:49 Presenting complaint: Patient states: weakness and stomach ache, light headed, short of pml breath - ongoing issue since October. has seen PCP with blood work and cardiology referral and CT of abdomen. reports weight loss of 50 lbs since xm. had upper GI scope done and awaiting results. reports increased weakness over last few days. The last date and time the patient was known to be well was was at an unknown time on November 04, 2016. No acute neurological deficit is noted. Pre-hospital glucose is not applicable to this patient. Adult Sepsis Screening: The patient does not have new or worsening altered mentation. Patient's respiratory rate is less than 22. Systolic blood pressure is greater than 100. Patient has a qSOFA score of 0- Negative Sepsis Screen. Suicide/Homicide risk assessment- the patient denies having any suicidal and/or homicidal ideations and does not present with any other emotional, behavioral or mental health complaints. Status: Patient is not a service desk team lead or dependent. Transition of care: patient was not received from another setting of care. 14:49 Acuity: SIN Level 3 pml 14:49 Method Of Arrival: Walkin/Carried/Asstd pml Triage Assessment: 14:53 The onset of the patients symptoms was more than three hours ago. General: Appears in pml no apparent distress, comfortable, Behavior is appropriate for age, cooperative. Pain: Location: abdomen Pain currently is 3 out of 10 on a pain scale. HIV screening NA for this visit Offered previously. Neurological: Level of Consciousness is awake, alert, Oriented to person, place, time, Reports no additional symptoms. Historical: - Allergies: Etliswf-Hqj-Oha Reductase Inhibitors; - Home Meds: 1. Prilosec 40 mg Oral cpDR 1 cap once daily 2. levothyroxine 50 mcg Oral tab 1 tab once daily (Last dose: 11/29/2016) - PMHx: Hypercholesterolemia; Hypertension; Hypothyroidism; - PSHx: none; - Social history: Smoking status: Patient states was never smoker of tobacco. No barriers to communication noted, The patient speaks fluent Liberian, Speaks appropriately for age. - Family history: Not pertinent. - : The pt / caregiver states he / she is not on anticoagulants. Home medication list is obtained from the patient. - Exposure Risk Screening:: None identified. Screenin:18 Screening information is obtained from the patient. Fall risk: No risks identified. mk4 Assistance ADL's: requires no assistance with activities of daily living. Abuse/DV Screen: The patient / caregiver reports he/she is: not in a situation that causes fear, pain or injury. Nutritional screening: No deficits noted. Advance Directives: Currently, there is no health care proxy. There is no active DNR order. There is no living will. There is no Power of Lead Ramp Service Man. Advance directive information has not previously been placed in an [facility] medical record. Further advance directive information is declined. home support is adequate. 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 is here today because he wants further testing , he is sure something is being missed,. Pain: Denies pain. Pain began months ago. Neurological: Level of Consciousness is awake, alert, Oriented to person, place, time, Gait is steady, Speech is normal, Facial symmetry appears normal, Pupils are PERRLA, Denies blurred vision dizziness, numbness headache photophobia. Respiratory: Airway is patent Respiratory effort is even, unlabored, Respiratory pattern is regular, Breath sounds are clear bilaterally. GI: Abdomen is obese, Bowel sounds present X 4 quads. Abd is soft and non tender Reports Denies anorexia, constipation, cramping, diarrhea, incontinence, intolerance of fluids, intolerance of food, nausea, vomiting, however does report a "full feeling in abdomen". Derm: Skin is intact, is healthy with good turgor, Skin is pink, warm & dry. 17:10 General: Appears in no apparent distress, Behavior is cooperative, pleasant. General: mk4 watching TV in room with so, not excessively sleepy, remains awake and alert. Pain: Denies pain. Neurological: Level of Consciousness is awake, alert, Oriented to person, place, time, Denies blurred vision dizziness, headache. Respiratory: Airway is patent Respiratory effort is even, unlabored, Respiratory pattern is regular. 18:00 General: Appears in no apparent distress, comfortable, Behavior is cooperative, mk4 pleasant, returned from CT no new complaints . 18:59 General: Verbal report given by Shanell Bianchi RN. Assumed care of patient at this time.. kas2 19:27 General: Appears in no apparent distress, comfortable, Behavior is appropriate for age, kas2 cooperative. Pain: Denies pain. Neurological: Level of Consciousness is awake, alert, Oriented to person, place, time, Gait is steady, Speech is normal, Facial symmetry appears normal, Pupils are PERRLA. Cardiovascular: Capillary refill < 3 seconds Heart tones S1 S2 present Rhythm is sinus rhythm No ectopy. Chest pain is denied. Respiratory: Airway is patent Respiratory effort is even, unlabored, Respiratory pattern is regular, symmetrical, Breath sounds are clear bilaterally. Derm: Skin is intact, Skin is dry, Skin is pink, warm & dry. Skin temperature is warm. 20:24 General: Appears in no apparent distress, comfortable, Behavior is appropriate for age, kas2 cooperative. Pain: Denies pain. Neurological: No deficits noted. Cardiovascular: Rhythm is sinus rhythm No ectopy. Respiratory: Airway is patent Respiratory effort is even, unlabored, Respiratory pattern is regular, symmetrical. Derm: Skin is dry, Skin is pink, warm & dry. Skin temperature is warm. Vital Signs: 14:44 BP 133 / 104 RA Sitting (auto/reg); Pulse 99; Resp 18; Temp 97.3; Pulse Ox 97% on R/A; jrd Weight 136.08 kg (R); Height 5 ft. 8 in. (172.72 cm) (R); Pain 3/10; 14:48 BP 139 / 89 RA Sitting (man/lg); jrd 19:00 BP 153 / 93 (auto/); kas2 19:00 Pulse 64 MON; Pulse Ox 97% ; kas2 19:29 Resp 18; Temp 97.9(O); Pain 0/10; kas2 20:24 BP 158 / 88; Pulse 65; Resp 18; Temp 98.0(O); Pulse Ox 99% on R/A; Pain 0/10; kas2 14:44 Body Mass Index 45.61 (136.08 kg, 172.72 cm) jrd Vitals: 14:44 Log In Time: December 31, 2016 at 14:40. jrd 14:44 RN notified that patient meets Red Flag criteria. jrd 14:53 Glucose Measurement D-stick deferred by provider. pml ED Course: 14:44 Patient visited by Robb Spear PCA. jrd 14:44 Oneida is Private Physician. jrd 14:44 Patient moved to Waiting jrd 14:44 notified of Patients complaints, RN stated triage appropriate. jrd 14:46 Patient visited by Robb Spear PCA. jrd 14:48 Patient visited by Robb Spear PCA. jrd 14:50 Patient moved to Pre RCE jrd 14:51 Triage Initiated pml 15:02 Patient moved to Triage 3 ar3 15:31 EKG done. (by ED staff). Reviewed by Ca Mixon MD. ar3 15:32 Patient visited by Marj Myers PCA. ar3 15:52 Shoaib Villalobos PA-C is PHCP. cc10 15:52 Ca Mixon MD is Attending Physician. cc10 15:52 Patient visited by Shoaib Villalobos PA-C. cc10 15:52 Patient visited by Shoaib Villalobos PA-C. cc10 16:05 Patient moved to I4 / js13 16:18 The patient / caregiver is instructed regarding the plan of care and ED course. mk4 16:18 Inserted saline lock: 20 gauge in right forearm and blood collected. mk4 16:18 No procedures done that require assistance. mk4 16:26 Patient visited by Shira Bianchi RN. mk4 16:58 Patient visited by Shira Bianchi RN. mk4 17:09 [facility] Payment Agreement was scanned into [email or web address] and attached to record. zo 17:29 Patient visited by Shira Bianchi RN. mk4 18:00 Patient visited by Shira Bianchi RN. mk4 18:32 Patient visited by Shira Bianchi RN. mk4 18:34 CT Head Without Contrast Returned. EDMS 18:34 CT Chest Angio R/O PE Returned. EDMS 18:49 Meche Cannon,RAFAEL is Primary Nurse. mk4 18:49 Patient moved to 1 mk4 18:53 Patient visited by Robb Spear PCA. jrd 18:59 Ekta Wellington,RN is Primary Nurse. kas2 19:00 Patient visited by Ekta Wellington RN. kas2 19:29 Patient visited by Ekta Wellington RN. kas2 20:04 Oneida is Referral Physician. cc10 20:24 FIBRINOGEN Sent. kas2 20:25 Patient visited by Ekta Wellington RN. kas2 Administered Medications: 16:17 Drug: NS 0.9% 1000 ml [sodium chloride 0.9 % intravenous solution] Route: IV; Rate: mk4 bolus; Site: right antecubital; 20:23 Drug: Apixaban 10 mg [apixaban 2.5 mg tablet (4 tabs)] Route: PO; kas2 Order Results: Lab Order: Basic Metabolic Profile; [facility]' 12/31/16 16:29 Test: GLUCOSE, FASTING; Value: 100; Range: 80-110; Units: MG/DL; Status: F Test: BLOOD UREA NITROGEN; Value: 10; Range: 7-18; Units: MG/DL; Status: F Test: CREATININE FOR GFR; Value: 1.08; Range: 0.70-1.30; Units: MG/DL; Status: F Test: GLOMERULAR FILTRATION RATE; Value: > 60.0; Range: >49; Status: F Test: SODIUM LEVEL; Value: 142; Range: 136-145; Units: MEQ/L; Status: F Test: POTASSIUM SERUM; Value: 3.7; Range: 3.5-5.1; Units: MEQ/L; Status: F Test: CHLORIDE LEVEL; Value: 107; Range: 98-107; Units: MEQ/L; Status: F Test: CARBON DIOXIDE LEVEL; Value: 23; Range: 21-32; Units: MEQ/L; Status: F Test: ANION GAP; Value: 12; Range: 8-16; Units: MEQ/L; Status: F Test: CALCIUM LEVEL; Value: 9.0; Range: 8.8-10.2; Units: MG/DL; Status: F Test Note: ; Units are mL/min/1.73 m2 Chronic Kidney Disease Staging per NKF: Stage I & II GFR >=60 Normal to Mildly Decreased Stage III GFR 30-59 Moderately Decreased Stage IV GFR 15-29 Severely Decreased Stage V GFR <15 Very Little GFR Left ESRD GFR <15 on SHIPPING COORDINATOR Lab Order: CBC with Diff; [facility] 12/31/16 16:29 Test: WHITE BLOOD COUNT; Value: 7.5; Range: 4.0-10.0; Units: K/mm3; Status: F Test: RED BLOOD COUNT; Value: 5.27; Range: 4.30-6.10; Units: M/mm3; Status: F Test: HEMOGLOBIN; Value: 16.2; Range: 14.0-18.0; Units: g/dl; Status: F Test: HEMATOCRIT; Value: 46.2; Range: 42.0-52.0; Units: %; Status: F Test: MEAN CORPUSCULAR VOLUME; Value: 87.7; Range: 80.0-96.0; Units: fl; Status: F Test: MEAN CORPUSCULAR HEMOGLOBIN; Value: 30.6; Range: 27.0-33.0; Units: pg; Status: F Test: MEAN CORPUSCULAR HGB CONC; Value: 34.9; Range: 32.0-36.5; Units: g/dl; Status: F Test: RED CELL DISTRIBUTION WIDTH; Value: 12.5; Range: 11.5-14.5; Units: %; Status: F Test: PLATELET COUNT, AUTOMATED; Value: 215; Range: 150-450; Units: k/mm3; Status: F Test: NEUTROPHILS %; Value: 70.4; Range: 36.0-66.0; Abnormal: Above high normal; Units: %; Status: F Test: LYMPH %; Value: 18.3; Range: 24.0-44.0; Abnormal: Below low normal; Units: %; Status: F Test: MONO %; Value: 7.2; Range: 0.0-5.0; Abnormal: Above high normal; Units: %; Status: F Test: EOS %; Value: 1.8; Range: 0.0-3.0; Units: %; Status: F Test: BASO %; Value: 0.6; Range: 0.0-1.0; Units: %; Status: F Test: LARGE UNSTAINED CELL %; Value: 1.6; Range: 0.0-4.0; Units: %; Status: F Test: NEUTROPHILS #; Value: 5.3; Range: 1.8-7.7; Units: K/mm3; Status: F Test: LYMPH #; Value: 1.5; Range: 1.5-4.5; Units: K/mm3; Status: F Test: MONO #; Value: 0.5; Range: 0.0-0.8; Units: K/mm3; Status: F Test: EOS #; Value: 0.1; Range: 0.0-0.50; Units: K/mm3; Status: F Test: BASO #; Value: 0.0; Range: 0.0-0.2; Units: K/mm3; Status: F Test: LARGE UNSTAINED CELL #; Value: 0.1; Range: 0.0-0.4; Units: K/mm3; Status: F Lab Order: Cardiac Injury Profile; [facility] 12/31/16 16:29 Test: CPK CREATINE PHOSPHOKINASE; Value: 108; Range: 39-308; Units: U/L; Status: F Test: CK-MB VALUE MASS; Value: 1.3; Range: 0.0-3.6; Units: NG/ML; Status: F Test: MB/CK RELATIVE INDEX; Value: 1.20; Range: < OR =4; Status: F Test Note: ; DIAGNOSIS CRITERIA MMB ng/ml Relative Index (RI) NON-AMI < or = 5 N/A [place]ONE > 5 < or = 4 AMI > 5 > 4 Lab Order: Lipase; [facility] 12/31/16 16:29 Test: LIPASE; Value: 120; Range: 73-393; Units: U/L; Status: F Lab Order: Liver Profile; [facility] 12/31/16 16:29 Test: AST/SGOT; Value: 21; Range: 15-37; Units: U/L; Status: F Test: ALT/SGPT; Value: 20; Range: 12-78; Units: U/L; Status: F Test: ALKALINE PHOSPHATASE; Value: 57; Range: 45-117; Units: U/L; Status: F Test: BILIRUBIN,TOTAL; Value: 0.8; Range: 0.2-1.0; Units: MG/DL; Status: F Test: BILIRUBIN,DIRECT; Value: 0.2; Range: 0.0-0.2; Units: MG/DL; Status: F Test: TOTAL PROTEIN; Value: 7.3; Range: 6.4-8.2; Units: GM/DL; Status: F Test: ALBUMIN; Value: 3.9; Range: 3.2-5.2; Units: GM/DL; Status: F Test: ALBUMIN/GLOBULIN RATIO; Value: 1.15; Range: 1.00-1.93; Status: F Lab Order: Troponin; [facility] 12/31/16 16:29 Test: TROPONIN I; Value: < 0.02; Range: < 0.10; Units: NG/ML; Status: F Test Note: ; Troponin I Reference Interval for [employer] LOCI: 99th Percentile= 0.00-0.045 ng/ml Risk Stratification: <= 0.10 ng/ml Decreased Risk for Adverse Clinical Events. 0.10-1.50 ng/ml Increased Risk for Adverse Clinical Events. Evaluation of additional criterion and/or repeat testing in 2-6 hours is suggested to rule out myocardial damage. >= 1.50 ng/ml Indicative of Myocardial Injury. Lab Order: Urinalysis; [facility] 12/31/16 16:07 Test: APPEARANCE, URINE; Value: CLEAR; Range: CLEAR; Status: F Test: COLOR, URINE; Value: YELLOW; Range: YELLOW; Status: F Test: PH,URINE; Value: 6.0; Range: 5.0-9.0; Units: UNITS; Status: F Test: SPECIFIC GRAVITY URINE AUTO; Value: 1.012; Range: 1.002-1.035; Status: F Test: PROTEIN, URINE AUTO; Value: NEGATIVE; Range: NEGATIVE; Units: mg/dL; Status: F Test: GLUCOSE, URINE (UA) AUTO; Value: NEGATIVE; Range: NEGATIVE; Units: mg/dL; Status: F Test: KETONE, URINE AUTO; Value: NEGATIVE; Range: NEGATIVE; Units: mg/dL; Status: F Test: UROBILINOGEN, URINE AUTO; Value: 0.2; Range: 0.0-2.0; Units: mg/dL; Status: F Test: BILIRUBIN, URINE AUTO; Value: NEGATIVE; Range: NEGATIVE; Status: F Test: NITRITE, URINE AUTO; Value: NEGATIVE; Range: NEGATIVE; Status: F Test: LEUKOCYTE ESTERASE, URINE AUTO; Value: NEGATIVE; Range: NEGATIVE; Status: F Test: BLOOD, URINE BLOOD; Value: NEGATIVE; Range: NEGATIVE; Status: F Test: WBC, URINE AUTO; Value: 1; Range: 0-3; Units: /HPF; Status: F Test: RBC, URINE AUTO; Value: 1; Range: 0-3; Units: /HPF; Status: F Test: BACTERIA, URINE AUTO; Value: 1+; Range: NEGATIVE; Abnormal: Above high normal; Status: F Test: SQUAMOUS EPITHELIAL CELL UR AU; Value: 0; Range: 0-6; Units: /HPF; Status: F Test: MUCUS, URINE; Value: SMALL; Range: NEGATIVE; Status: F Test: HYALINE CAST, URINE AUTO; Value: 0; Range: 0-1; Units: /LPF; Status: F Lab Order: D-Dimer Quant; SPEC'[facility] 12/31/16 16:29 Test: D-DIMER QUANT; Value: > 4000.0; Range: <500; Abnormal: Above high normal; Units: ng/ml; Status: F Lab Order: THYROID PROFILE; SPE[facility] 12/31/16 16:29 Test: T UPTAKE; Value: 32; Range: 33-40; Abnormal: Below low normal; Units: %; Status: F Test: THYROXINE (T4); Value: 9.0; Range: 4.5-12.0; Units: UG/DL; Status: F Test: FREE THYROXINE INDEX; Value: 2.9; Range: 1.4-3.8; Units: %; Status: F Test: THYROID STIMULATING HORMONE; Value: 2.090; Range: 0.358-3.740; Units: uIU/ML; Status: F Radiology Order: CT Head Without Contrast Test: CT Head Without Contrast REASON FOR EXAMINATION: weakness; Clinical: Headache and weakness .; ; Comparison: None .; ; Findings:; The ventricles, sulci, and cisterns are normal in position and appearance.; [place]-white differentiation is maintained. No acute intracranial hemorrhage,; mass/mass effect, pathology or trauma/injury. No evidence for acute infarction.; No extra-axial fluid collection. Calvarium is intact. Paranasal sinuses and; mastoid air cells are clear.; ; Impression:; Normal noncontrast head CT.; No evidence for acute intracranial pathology or trauma/injury.; ; ; Signed by; Robinson Singh MD 12/31/2016 06:14 P; Radiology Order: CT Chest Angio R/O PE Test: CT Chest Angio R/O PE REASON FOR EXAMINATION: Shortness of Breath; Clinical: Acute chest pain and shortness of breath.; ; Technique: Axial contrast enhanced images from the thoracic inlet to the upper; abdomen using 100 ml Isovue 370 intravenous contrast material with coronal and; sagittal re-formations.; ; Findings: Satisfactory enhancement of the pulmonary vasculature is achieved.; Pulmonary emboli are identified within the second order pulmonary arteries; extending to the right lower lobe (images 90 - 110) as well as small focus of; embolus extending to the medial right middle lobe (image 81) and smaller distal; branch emboli to the left lower lobe (images 99 - 110). No associated; consolidation, atelectasis, or pleural effusion. Mild cardiomegaly suggested.; Thoracic aorta is normal and without aneurysm or dissection. No pericardial; effusion noted. No adenopathy. Surrounding musculoskeletal structures are; intact.; ; ; Impression:; 1. Pulmonary emboli predominate within the second order right lower lobe; pulmonary arteries and to a lesser extent small focus extending to the right; middle lobe and distal left lower lobe branches. No associated pulmonary; parenchymal consolidation, atelectasis, or pleural effusion.; 2. Cardiomegaly. Normal thoracic aorta.; ; ; Signed by; Robinson Singh MD 12/31/2016 06:19 P; Outcome: 20:04 Discharge ordered by Provider. cc10 20:25 Discharge Assessment: patient administered narcotics - no. The following High Risk kas2 Discharge criteria are identified: None. Discharged to home ambulatory, with family. Condition: good Condition: stable Condition: improved. CT Study completed. Property :Personal belongings accompany Pt. 20:25 Patient left the ED. kas2 Signatures: Dispatcher [employer] EDMS Titi Barreto Alicia, MULTIMEDIA INSTRUCTIONAL DESIGNER MULTIMEDIA INSTRUCTIONAL DESIGNER ar3 Haven Colin,RN RN pml Yenni Dalton,RN RN js13 Shria Bianchi, RN RN mk4 Shoaib Villalobos, CROW PA-C cc10 Robb Spear, JERILYN MULTIMEDIA INSTRUCTIONAL DESIGNER jrd Ekta Wellington,RN RN kas2 MTDD
--- NOTE | 2016-12-31 21:36 | ER ---
DATE OF CONSULTATION: 12/31/2016 This is a consult requested by the minor treatment Physician Edge Polisher (PA) in the emergency department. REASON FOR CONSULTATION: New pulmonary emboli. HISTORY OF PRESENT ILLNESS: Mr. Carrasquillo is a 61-year-old gentleman that started developing some vague symptoms of loss of appetite and some generalized weakness since October 28. He has had a pretty extensive workup through his primary care provider, Dr. Mohamud, and [facility] consisting of scans, as well as colonoscopy done in September that was negative. A recent esophagogastroduodenoscopy (EGD) that demonstrated gastritis. He was started on Prilosec, and he informs me that the Helicobacter (H.) pylori biopsy is pending at this time. He has also been seen by a urogenital specialist through the [facility]. He had no obvious signs of testicular cancer. Prostate exam was negative and prostate-specific antigen (PSA) was negative. At any rate, he has had over the last 2 weeks an insidious onset of shortness of breath, dyspnea, nonproductive cough, worse in the morning with no hemoptysis. He denies any substernal chest pain. No leg pain but he has had some intermittent swelling since October. There is no history of cancer. He denies any night sweats, fevers. PAST MEDICAL HISTORY: Hyperlipidemia, hypertension, hypothyroidism. PAST SURGICAL HISTORY: None. SOCIAL HISTORY: The patient denies tobacco use. Occasional alcohol use but has not drank any in 2 months. No recent travel. No sick contacts. FAMILY HISTORY: Negative. ALLERGIES: To STATINS. 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 HEENT: He denies headache, lightheadedness, dizziness, blurry vision, double vision or tinnitus. No difficulty with speech or swallow. Pulmonary: Dyspnea, shortness of breath. No wheeze. No hemoptysis. Cardiovascular: No paroxysmal nocturnal dyspnea (PND) or orthopnea, but he has had some mild lower extremity edema. He does have dyspnea on exertion with some shortness of breath but denies any substernal chest pain, jaw or shoulder pain. No arm pain. GI: Denies nausea, vomiting, diarrhea. Bowel movements regular. Denies any hematochezia or melena. As outlined above, he has had a recent EGD that demonstrated gastritis that he is on Prilosec for and the gastric biopsy and H. pylori testing is pending at this time. Musculoskeletal: Denies bone, muscle or joint pain, swelling or erythema. Neurologic: No paresthesias or paralysis. Endocrine: Negative for diabetes. Positive for thyroid disorder. Lymphatics: No lumps, bumps, swelling in the neck, axilla or groin. No night sweats or weight loss. Hematology: Negative for bleeding or bruising disorder in the past. No prior history of venous thromboembolism. Oncology: No history of cancer. Psychiatric: Negative for depression. No suicidal ideation. No audiovisual hallucinations. PHYSICAL EXAMINATION: Temperature is 97.3, respiratory rate is 18, pulse 99, blood pressure 139/89, SPO2 is 97% on room air. General: The patient appears to be in no acute distress. He is alert, pleasant to talk to. HEENT: Unremarkable. Lungs: Clear. Heart: Regular rate and rhythm. Abdomen: Soft. Extremities: No edema. No calf tenderness. LABORATORY DATA: White count 7.5, hemoglobin 16.2, platelets 215,000. Sodium 142, potassium 3.7, chloride 107, bicarbonate 23, anion gap 12, BUN 10, creatinine 1.08, glucose is 100, calcium is 9.0, total bilirubin 0.8, direct bilirubin 0.2, AST 21, ALT 20, alkaline phosphatase 57, total CK is 108, CK-MB 1.3, troponin less than 0.02, albumin 3.9, TSH 2.09. D-dimer was greater than 4000. Urinalysis: 1+ bacteria, otherwise unremarkable. Head CT: Normal noncontrast head CT with no evidence of intracranial pathology, trauma or injury. CT angio of the chest: Pulmonary emboli predominant within the second order right lower lobe pulmonary artery, to a lesser extent small focus extending to the right middle lobe, distal left lower lobe branches. No associated pulmonary parenchymal consolidation, atelectasis or pulmonary effusion. Some mild cardiomegaly with normal thoracic aorta is noted. IMPRESSION: Mr. Carrasquillo is a 61-year-old gentleman with insidious onset of shortness of breath, dyspnea on exertion for the last 2 weeks. He has had some decreased appetite and weight loss of about 50 pounds since October, but it sounds like he has had a pretty thorough workup through his primary care provider and the [facility] as outlined above. He does test positive for pulmonary emboli this evening, but his symptomatology does appear to indicate that he has submassive pulmonary embolism (PE) and he is requiring no oxygen supplementation and does not demonstrate any signs of heart failure. PROBLEM LIST: 1. Pulmonary emboli. 2. Gastroesophageal reflux disease. 3. Hypothyroidism. 4. History of hypertension. RECOMMENDATIONS: I did go ahead and write scripts for the patient to be started on Eliquis with dosing instructions, and he was given a 30-day coupon for this. I spoke to the PA who is providing care for him in the minor treatment. They will go ahead and give him his first dose of Eliquis 10 mg this evening. I also had an opportunity to speak to the patient's primary care provider, and she would like for him to call the office in the morning so that he can have followup this coming week. He was also given instructions regarding worsening of symptoms, substernal chest pain, hemoptysis, chest pain, increased dyspnea on exertion or decreased exercise tolerance, and he should return to the emergency department if any of those should occur. Also reviewed the indications, uses and side effects of the Eliquis as well as other options were reviewed with him regarding Coumadin, inferior vena cava (IVC) filter and other types of anticoagulation, and we did settle on treating with Eliquis. Disposition is as outlined above. The patient can be discharged home and have instructions to return if he should develop any further problems as outlined. Additionally, hypercoagulable profile is pending at this time.
--- NOTE | 2017-01-02 21:26 | EDDOCDS ---
Nurse's Notes [facility] Name: Caren Carrasquillo Age: 61 yrs Sex: Male : 1955 Arrival Date: 12/31/2016 Time: 14:42 Bed 1 Private MD: Oneida Diagnosis: Pulmonary embolism Presentation: 12/31 14:49 Presenting complaint: Patient states: weakness and stomach ache, light headed, short of pml breath - ongoing issue since October. has seen PCP with blood work and cardiology referral and CT of abdomen. reports weight loss of 50 lbs since xm. had upper GI scope done and awaiting results. reports increased weakness over last few days. The last date and time the patient was known to be well was was at an unknown time on November 04, 2016. No acute neurological deficit is noted. Pre-hospital glucose is not applicable to this patient. Adult Sepsis Screening: The patient does not have new or worsening altered mentation. Patient's respiratory rate is less than 22. Systolic blood pressure is greater than 100. Patient has a qSOFA score of 0- Negative Sepsis Screen. Suicide/Homicide risk assessment- the patient denies having any suicidal and/or homicidal ideations and does not present with any other emotional, behavioral or mental health complaints. Status: Patient is not a community service coordinator or dependent. Transition of care: patient was not received from another setting of care. 14:49 Acuity: SIN Level 3 pml 14:49 Method Of Arrival: Walkin/Carried/Asstd pml Triage Assessment: 14:53 The onset of the patients symptoms was more than three hours ago. General: Appears in pml no apparent distress, comfortable, Behavior is appropriate for age, cooperative. Pain: Location: abdomen Pain currently is 3 out of 10 on a pain scale. HIV screening NA for this visit Offered previously. Neurological: Level of Consciousness is awake, alert, Oriented to person, place, time, Reports no additional symptoms. Historical: - Allergies: Qitrdjc-Ryo-Wsv Reductase Inhibitors; - Home Meds: 1. Prilosec 40 mg Oral cpDR 1 cap once daily 2. levothyroxine 50 mcg Oral tab 1 tab once daily (Last dose: 11/29/2016) - PMHx: Hypercholesterolemia; Hypertension; Hypothyroidism; - PSHx: none; - Social history: Smoking status: Patient states was never smoker of tobacco. No barriers to communication noted, The patient speaks fluent Danish, Speaks appropriately for age. - Family history: Not pertinent. - : The pt / caregiver states he / she is not on anticoagulants. Home medication list is obtained from the patient. - Exposure Risk Screening:: None identified. Screenin:18 Screening information is obtained from the patient. Fall risk: No risks identified. mk4 Assistance ADL's: requires no assistance with activities of daily living. Abuse/DV Screen: The patient / caregiver reports he/she is: not in a situation that causes fear, pain or injury. Nutritional screening: No deficits noted. Advance Directives: Currently, there is no health care proxy. There is no active DNR order. There is no living will. 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 Advance directive information has not previously been placed in an [facility] medical record. Further advance directive information is declined. home support is adequate. 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 is here today because he wants further testing , he is sure something is being missed,. Pain: Denies pain. Pain began months ago. Neurological: Level of Consciousness is awake, alert, Oriented to person, place, time, Gait is steady, Speech is normal, Facial symmetry appears normal, Pupils are PERRLA, Denies blurred vision dizziness, numbness headache photophobia. Respiratory: Airway is patent Respiratory effort is even, unlabored, Respiratory pattern is regular, Breath sounds are clear bilaterally. GI: Abdomen is obese, Bowel sounds present X 4 quads. Abd is soft and non tender Reports Denies anorexia, constipation, cramping, diarrhea, incontinence, intolerance of fluids, intolerance of food, nausea, vomiting, however does report a "full feeling in abdomen". Derm: Skin is intact, is healthy with good turgor, Skin is pink, warm & dry. 17:10 General: Appears in no apparent distress, Behavior is cooperative, pleasant. General: mk4 watching TV in room with so, not excessively sleepy, remains awake and alert. Pain: Denies pain. Neurological: Level of Consciousness is awake, alert, Oriented to person, place, time, Denies blurred vision dizziness, headache. Respiratory: Airway is patent Respiratory effort is even, unlabored, Respiratory pattern is regular. 18:00 General: Appears in no apparent distress, comfortable, Behavior is cooperative, mk4 pleasant, returned from CT no new complaints . 18:59 General: Verbal report given by Shanell Bianchi RN. Assumed care of patient at this time.. kas2 19:27 General: Appears in no apparent distress, comfortable, Behavior is appropriate for age, kas2 cooperative. Pain: Denies pain. Neurological: Level of Consciousness is awake, alert, Oriented to person, place, time, Gait is steady, Speech is normal, Facial symmetry appears normal, Pupils are PERRLA. Cardiovascular: Capillary refill < 3 seconds Heart tones S1 S2 present Rhythm is sinus rhythm No ectopy. Chest pain is denied. Respiratory: Airway is patent Respiratory effort is even, unlabored, Respiratory pattern is regular, symmetrical, Breath sounds are clear bilaterally. Derm: Skin is intact, Skin is dry, Skin is pink, warm & dry. Skin temperature is warm. 20:24 General: Appears in no apparent distress, comfortable, Behavior is appropriate for age, kas2 cooperative. Pain: Denies pain. Neurological: No deficits noted. Cardiovascular: Rhythm is sinus rhythm No ectopy. Respiratory: Airway is patent Respiratory effort is even, unlabored, Respiratory pattern is regular, symmetrical. Derm: Skin is dry, Skin is pink, warm & dry. Skin temperature is warm. Vital Signs: 14:44 BP 133 / 104 RA Sitting (auto/reg); Pulse 99; Resp 18; Temp 97.3; Pulse Ox 97% on R/A; jrd Weight 136.08 kg (R); Height 5 ft. 8 in. (172.72 cm) (R); Pain 3/10; 14:48 BP 139 / 89 RA Sitting (man/lg); jrd 19:00 BP 153 / 93 (auto/); kas2 19:00 Pulse 64 MON; Pulse Ox 97% ; kas2 19:29 Resp 18; Temp 97.9(O); Pain 0/10; kas2 20:24 BP 158 / 88; Pulse 65; Resp 18; Temp 98.0(O); Pulse Ox 99% on R/A; Pain 0/10; kas2 14:44 Body Mass Index 45.61 (136.08 kg, 172.72 cm) jrd Vitals: 14:44 Log In Time: December 31, 2016 at 14:40. jrd 14:44 RN notified that patient meets Red Flag criteria. jrd 14:53 Glucose Measurement D-stick deferred by provider. pml ED Course: 14:44 Patient visited by Robb Spear PCA. jrd 14:44 Oneida is Private Physician. jrd 14:44 Patient moved to Waiting jrd 14:44 notified of Patients complaints, RN stated triage appropriate. jrd 14:46 Patient visited by Robb Spear PCA. jrd 14:48 Patient visited by Robb Spear PCA. jrd 14:50 Patient moved to Pre RCE jrd 14:51 Triage Initiated pml 15:02 Patient moved to Triage 3 ar3 15:31 EKG done. (by ED staff). Reviewed by Ca Mixon MD. ar3 15:32 Patient visited by Marj Myers PCA. ar3 15:52 Shoaib Villalobos PA-C is PHCP. cc10 15:52 Ca Mixon MD is Attending Physician. cc10 15:52 Patient visited by Shoaib Villalobos PA-C. cc10 15:52 Patient visited by Shoaib Villalobos PA-C. cc10 16:05 Patient moved to I4 / js13 16:18 The patient / caregiver is instructed regarding the plan of care and ED course. mk4 16:18 Inserted saline lock: 20 gauge in right forearm and blood collected. mk4 16:18 No procedures done that require assistance. mk4 16:26 Patient visited by Shira Bianchi RN. mk4 16:58 Patient visited by Shira Bianchi RN. mk4 17:09 [facility] Payment Agreement was scanned into [employer] and attached to record. zo 17:29 Patient visited by Shira Bianchi RN. mk4 18:00 Patient visited by Shira Bianchi RN. mk4 18:32 Patient visited by Shira Bianchi RN. mk4 18:34 CT Head Without Contrast Returned. EDMS 18:34 CT Chest Angio R/O PE Returned. EDMS 18:49 Meche Cannon,RN is Primary Nurse. mk4 18:49 Patient moved to 1 mk4 18:53 Patient visited by Robb Spear PCA. jrd 18:59 Ekta Wellington,RN is Primary Nurse. kas2 19:00 Patient visited by Ekta Wellington RN. kas2 19:29 Patient visited by Ekta Wellington RN. kas2 20:04 Oneida is Referral Physician. cc10 20:24 FIBRINOGEN Sent. kas2 20:25 Patient visited by Ekta Wellington RN. kas2 21:07 EKG-ADULT Returned. EDMS 02 11:53 T-Sheet-- Draft Copy was scanned into [employer] and attached to record. gb 11:53 ECG/EKG was scanned into [employer] and attached to record. gb Administered Medications: 12/31 16:17 Drug: NS 0.9% 1000 ml [sodium chloride 0.9 % intravenous solution] Route: IV; Rate: mk4 bolus; Site: right antecubital; 20:23 Drug: Apixaban 10 mg [apixaban 2.5 mg tablet (4 tabs)] Route: PO; kas2 Order Results: Lab Order: Basic Metabolic Profile; SPEC'M 12/31/16 16:29 Test: GLUCOSE, FASTING; Value: 100; Range: 80-110; Units: MG/DL; Status: F Test: BLOOD UREA NITROGEN; Value: 10; Range: 7-18; Units: MG/DL; Status: F Test: CREATININE FOR GFR; Value: 1.08; Range: 0.70-1.30; Units: MG/DL; Status: F Test: GLOMERULAR FILTRATION RATE; Value: > 60.0; Range: >49; Status: F Test: SODIUM LEVEL; Value: 142; Range: 136-145; Units: MEQ/L; Status: F Test: POTASSIUM SERUM; Value: 3.7; Range: 3.5-5.1; Units: MEQ/L; Status: F Test: CHLORIDE LEVEL; Value: 107; Range: 98-107; Units: MEQ/L; Status: F Test: CARBON DIOXIDE LEVEL; Value: 23; Range: 21-32; Units: MEQ/L; Status: F Test: ANION GAP; Value: 12; Range: 8-16; Units: MEQ/L; Status: F Test: CALCIUM LEVEL; Value: 9.0; Range: 8.8-10.2; Units: MG/DL; Status: F Test Note: ; Units are mL/min/1.73 m2 Chronic Kidney Disease Staging per NKF: Stage I & II GFR >=60 Normal to Mildly Decreased Stage III GFR 30-59 Moderately Decreased Stage IV GFR 15-29 Severely Decreased Stage V GFR <15 Very Little GFR Left ESRD GFR <15 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 Lab Order: CBC with Diff; SPEC'M 12/31/16 16:29 Test: WHITE BLOOD COUNT; Value: 7.5; Range: 4.0-10.0; Units: K/mm3; Status: F Test: RED BLOOD COUNT; Value: 5.27; Range: 4.30-6.10; Units: M/mm3; Status: F Test: HEMOGLOBIN; Value: 16.2; Range: 14.0-18.0; Units: g/dl; Status: F Test: HEMATOCRIT; Value: 46.2; Range: 42.0-52.0; Units: %; Status: F Test: MEAN CORPUSCULAR VOLUME; Value: 87.7; Range: 80.0-96.0; Units: fl; Status: F Test: MEAN CORPUSCULAR HEMOGLOBIN; Value: 30.6; Range: 27.0-33.0; Units: pg; Status: F Test: MEAN CORPUSCULAR HGB CONC; Value: 34.9; Range: 32.0-36.5; Units: g/dl; Status: F Test: RED CELL DISTRIBUTION WIDTH; Value: 12.5; Range: 11.5-14.5; Units: %; Status: F Test: PLATELET COUNT, AUTOMATED; Value: 215; Range: 150-450; Units: k/mm3; Status: F Test: NEUTROPHILS %; Value: 70.4; Range: 36.0-66.0; Abnormal: Above high normal; Units: %; Status: F Test: LYMPH %; Value: 18.3; Range: 24.0-44.0; Abnormal: Below low normal; Units: %; Status: F Test: MONO %; Value: 7.2; Range: 0.0-5.0; Abnormal: Above high normal; Units: %; Status: F Test: EOS %; Value: 1.8; Range: 0.0-3.0; Units: %; Status: F Test: BASO %; Value: 0.6; Range: 0.0-1.0; Units: %; Status: F Test: LARGE UNSTAINED CELL %; Value: 1.6; Range: 0.0-4.0; Units: %; Status: F Test: NEUTROPHILS #; Value: 5.3; Range: 1.8-7.7; Units: K/mm3; Status: F Test: LYMPH #; Value: 1.5; Range: 1.5-4.5; Units: K/mm3; Status: F Test: MONO #; Value: 0.5; Range: 0.0-0.8; Units: K/mm3; Status: F Test: EOS #; Value: 0.1; Range: 0.0-0.50; Units: K/mm3; Status: F Test: BASO #; Value: 0.0; Range: 0.0-0.2; Units: K/mm3; Status: F Test: LARGE UNSTAINED CELL #; Value: 0.1; Range: 0.0-0.4; Units: K/mm3; Status: F Lab Order: Cardiac Injury Profile; [facility] 12/31/16 16:29 Test: CPK CREATINE PHOSPHOKINASE; Value: 108; Range: 39-308; Units: U/L; Status: F Test: CK-MB VALUE MASS; Value: 1.3; Range: 0.0-3.6; Units: NG/ML; Status: F Test: MB/CK RELATIVE INDEX; Value: 1.20; Range: < OR =4; Status: F Test Note: ; DIAGNOSIS CRITERIA MMB ng/ml Relative Index (RI) NON-AMI < or = 5 N/A [place] > 5 < or = 4 AMI > 5 > 4 Lab Order: Lipase; [facility] 12/31/16 16:29 Test: LIPASE; Value: 120; Range: 73-393; Units: U/L; Status: F Lab Order: Liver Profile; [facility] 12/31/16 16:29 Test: AST/SGOT; Value: 21; Range: 15-37; Units: U/L; Status: F Test: ALT/SGPT; Value: 20; Range: 12-78; Units: U/L; Status: F Test: ALKALINE PHOSPHATASE; Value: 57; Range: 45-117; Units: U/L; Status: F Test: BILIRUBIN,TOTAL; Value: 0.8; Range: 0.2-1.0; Units: MG/DL; Status: F Test: BILIRUBIN,DIRECT; Value: 0.2; Range: 0.0-0.2; Units: MG/DL; Status: F Test: TOTAL PROTEIN; Value: 7.3; Range: 6.4-8.2; Units: GM/DL; Status: F Test: ALBUMIN; Value: 3.9; Range: 3.2-5.2; Units: GM/DL; Status: F Test: ALBUMIN/GLOBULIN RATIO; Value: 1.15; Range: 1.00-1.93; Status: F Lab Order: Troponin; SPEC'M 12/31/16 16:29 Test: TROPONIN I; Value: < 0.02; Range: < 0.10; Units: NG/ML; Status: F Test Note: ; Troponin I Reference Interval for [employer] LOCI: 99th Percentile= 0.00-0.045 ng/ml Risk Stratification: <= 0.10 ng/ml Decreased Risk for Adverse Clinical Events. 0.10-1.50 ng/ml Increased Risk for Adverse Clinical Events. Evaluation of additional criterion and/or repeat testing in 2-6 hours is suggested to rule out myocardial damage. >= 1.50 ng/ml Indicative of Myocardial Injury. Lab Order: Urinalysis; SPEC'M 12/31/16 16:07 Test: APPEARANCE, URINE; Value: CLEAR; Range: CLEAR; Status: F Test: COLOR, URINE; Value: YELLOW; Range: YELLOW; Status: F Test: PH,URINE; Value: 6.0; Range: 5.0-9.0; Units: UNITS; Status: F Test: SPECIFIC GRAVITY URINE AUTO; Value: 1.012; Range: 1.002-1.035; Status: F Test: PROTEIN, URINE AUTO; Value: NEGATIVE; Range: NEGATIVE; Units: mg/dL; Status: F Test: GLUCOSE, URINE (UA) AUTO; Value: NEGATIVE; Range: NEGATIVE; Units: mg/dL; Status: F Test: KETONE, URINE AUTO; Value: NEGATIVE; Range: NEGATIVE; Units: mg/dL; Status: F Test: UROBILINOGEN, URINE AUTO; Value: 0.2; Range: 0.0-2.0; Units: mg/dL; Status: F Test: BILIRUBIN, URINE AUTO; Value: NEGATIVE; Range: NEGATIVE; Status: F Test: NITRITE, URINE AUTO; Value: NEGATIVE; Range: NEGATIVE; Status: F Test: LEUKOCYTE ESTERASE, URINE AUTO; Value: NEGATIVE; Range: NEGATIVE; Status: F Test: BLOOD, URINE BLOOD; Value: NEGATIVE; Range: NEGATIVE; Status: F Test: WBC, URINE AUTO; Value: 1; Range: 0-3; Units: /HPF; Status: F Test: RBC, URINE AUTO; Value: 1; Range: 0-3; Units: /HPF; Status: F Test: BACTERIA, URINE AUTO; Value: 1+; Range: NEGATIVE; Abnormal: Above high normal; Status: F Test: SQUAMOUS EPITHELIAL CELL UR AU; Value: 0; Range: 0-6; Units: /HPF; Status: F Test: MUCUS, URINE; Value: SMALL; Range: NEGATIVE; Status: F Test: HYALINE CAST, URINE AUTO; Value: 0; Range: 0-1; Units: /LPF; Status: F Lab Order: D-Dimer Quant; SPEC' 12/31/16 16:29 Test: D-DIMER QUANT; Value: > 4000.0; Range: <500; Abnormal: Above high normal; Units: ng/ml; Status: F Lab Order: THYROID PROFILE; SPEC'M 12/31/16 16:29 Test: T UPTAKE; Value: 32; Range: 33-40; Abnormal: Below low normal; Units: %; Status: F Test: THYROXINE (T4); Value: 9.0; Range: 4.5-12.0; Units: UG/DL; Status: F Test: FREE THYROXINE INDEX; Value: 2.9; Range: 1.4-3.8; Units: %; Status: F Test: THYROID STIMULATING HORMONE; Value: 2.090; Range: 0.358-3.740; Units: uIU/ML; Status: F Lab Order: C REACTIVE PROTEIN QUANTITATIV; SPEC'M 12/31/16 20:10 Test: C REACTIVE PROTEIN QUANTITATIV; Value: 0.39; Range: 0.00-0.30; Abnormal: Above high normal; Units: MG/DL; Status: F Lab Order: FIBRINOGEN; SPEC'M 12/31/16 20:02 Test: FIBRINOGEN; Value: 350; Range: 221-452; Units: MG/DL; Status: F Radiology Order: EKG-ADULT Test: EKG-ADULT REASON FOR EXAMINATION: SOB/weakness; Stationary ECG Study; [facility] - ED; ; Test Date: 2016-12-31; Pat Name: CAREN CARRASQUILLO Department:; Room: -; Gender: M 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; : 1955 Requested By: Antonella Cui PA-C; Order Number: [id number] Reading MD: Ca Mixon; Measurements; Intervals [place]; Rate: 77 P: 28; NC: 234 QRS: 34; QRSD: 112 T: -5; QT: 372; QTc: 422; Interpretive Statements; SINUS RHYTHM WITH FIRST DEGREE AV BLOCK; MODERATE INTRAVENTRICULAR CONDUCTION DELAY; ; Electronically Signed On 12-31-2016 20:23:42 EST by Ca Mixon; Radiology Order: CT Head Without Contrast Test: CT Head Without Contrast REASON FOR EXAMINATION: weakness; Clinical: Headache and weakness .; ; Comparison: None .; ; Findings:; The ventricles, sulci, and cisterns are normal in position and appearance.; [place]-white differentiation is maintained. No acute intracranial hemorrhage,; mass/mass effect, pathology or trauma/injury. No evidence for acute infarction.; No extra-axial fluid collection. Calvarium is intact. Paranasal sinuses and; mastoid air cells are clear.; ; Impression:; Normal noncontrast head CT.; No evidence for acute intracranial pathology or trauma/injury.; ; ; Signed by; Robinson Singh MD 12/31/2016 06:14 P; Radiology Order: CT Chest Angio R/O PE Test: CT Chest Angio R/O PE REASON FOR EXAMINATION: Shortness of Breath; Clinical: Acute chest pain and shortness of breath.; ; Technique: Axial contrast enhanced images from the thoracic inlet to the upper; abdomen using 100 ml Isovue 370 intravenous contrast material with coronal and; sagittal re-formations.; ; Findings: Satisfactory enhancement of the pulmonary vasculature is achieved.; Pulmonary emboli are identified within the second order pulmonary arteries; extending to the right lower lobe (images 90 - 110) as well as small focus of; embolus extending to the medial right middle lobe (image 81) and smaller distal; branch emboli to the left lower lobe (images 99 - 110). No associated; consolidation, atelectasis, or pleural effusion. Mild cardiomegaly suggested.; Thoracic aorta is normal and without aneurysm or dissection. No pericardial; effusion noted. No adenopathy. Surrounding musculoskeletal structures are; intact.; ; ; Impression:; 1. Pulmonary emboli predominate within the second order right lower lobe; pulmonary arteries and to a lesser extent small focus extending to the right; middle lobe and distal left lower lobe branches. No associated pulmonary; parenchymal consolidation, atelectasis, or pleural effusion.; 2. Cardiomegaly. Normal thoracic aorta.; ; ; Signed by; Robinson Singh MD 12/31/2016 06:19 P; Outcome: 20:04 Discharge ordered by Provider. cc10 20:25 Discharge Assessment: patient administered narcotics - no. The following High Risk kas2 Discharge criteria are identified: None. Discharged to home ambulatory, with family. Condition: good Condition: stable Condition: improved. CT Study completed. Property :Personal belongings accompany Pt. 20:25 Patient left the ED. kas2 Signatures: Dispatcher [employer] EDMS Roseann Tanner, Titi Harris Alicia, XEROX MACHINE ASSEMBLER XEROX MACHINE ASSEMBLER [email or web address] Haven Colin,RN Yenni Devries RN RN [id number] Shira Bianchi RN RN mk4 Shoaib Villalobos, PA-C PA-C cc10 Robb Spear, XEROX MACHINE ASSEMBLER XEROX MACHINE ASSEMBLER Ekta Hein RN RN [facility]2 Chart Complete MTDD
--- NOTE | 2017-01-02 21:26 | EDDOCDS ---
Physician Documentation [facility] Name: Sam Carrasquillo Age: 61 yrs Sex: Male : 1955 Arrival Date: 12/31/2016 Time: 14:42 Bed 1 Private MD: Oneida Disposition: 12/31/16 20:04 Discharged to Home/Self Care. Impression: Pulmonary embolism. - Condition is Stable. - Discharge Instructions: Pulmonary Embolism. - Medication Reconciliation form. - Follow up: Oneida; When: Tomorrow; Reason: Wound/Symptom Recheck, Recheck today's complaints, Worsening of conditions, Continuance of care. - Problem is chronic. - Symptoms have improved. Historical: - Allergies: Ljrekqt-Yoa-Opz Reductase Inhibitors; - Home Meds: 1. Prilosec 40 mg Oral cpDR 1 cap once daily 2. levothyroxine 50 mcg Oral tab 1 tab once daily (Last dose: 11/29/2016) - PMHx: Hypercholesterolemia; Hypertension; Hypothyroidism; - PSHx: none; - Social history: Smoking status: Patient states was never smoker of tobacco. No barriers to communication noted, The patient speaks fluent Turkmen, Speaks appropriately for age. - Family history: Not pertinent. - : The pt / caregiver states he / she is not on anticoagulants. Home medication list is obtained from the patient. - Exposure Risk Screening:: None identified. Vital Signs: 12/31 14:44 BP 133 / 104 RA Sitting (auto/reg); Pulse 99; Resp 18; Temp 97.3; Pulse Ox 97% on R/A; jrd Weight 136.08 kg / 300.01 lbs (R); Height 5 ft. 8 in. (172.72 cm) (R); Pain 3/10; 14:48 BP 139 / 89 RA Sitting (man/lg); jrd 19:00 BP 153 / 93 (auto/); kas2 19:00 Pulse 64 MON; Pulse Ox 97% ; kas2 19:29 Resp 18; Temp 97.9(O); Pain 0/10; kas2 20:24 BP 158 / 88; Pulse 65; Resp 18; Temp 98.0(O); Pulse Ox 99% on R/A; Pain 0/10; kas2 14:44 Body Mass Index 45.61 (136.08 kg, 172.72 cm) jrd MDM: 15:21 ECG WITH READING ER PHYS+CARDIAG ordered. EDMS 16:04 NS 0.9% 1000 ml IV at bolus once ordered. cc10 16:04 IV Saline Lock ordered. cc10 16:04 Undress patient appropriately for examination ordered. cc10 16:05 Basic Metabolic Profile Ordered. EDMS 16:05 CBC with Diff Ordered. EDMS 16:05 Cardiac Injury Profile Ordered. EDMS 16:05 Lipase Ordered. EDMS 16:05 Liver Profile Ordered. EDMS 16:05 Troponin Ordered. EDMS 16:05 Urinalysis Ordered. EDMS 16:05 D-Dimer Quant Ordered. EDMS 16:06 NOTHING BY MOUTH+DIET ordered. EDMS 16:09 THYROID PROFILE Ordered. EDMS 16:56 Financial registration complete. zo 17:09 [facility] Payment Agreement was scanned into [employer] and attached to record. zo 17:44 CBC with Diff Reviewed. cc10 17:44 Urinalysis Reviewed. cc10 17:44 THYROID PROFILE Reviewed. cc10 17:44 Basic Metabolic Profile Reviewed. cc10 17:44 Cardiac Injury Profile Reviewed. cc10 17:44 Lipase Reviewed. cc10 17:44 Liver Profile Reviewed. cc10 17:44 Troponin Reviewed. cc10 17:50 D-Dimer Quant Reviewed. cc10 17:56 CT Head Without Contrast Ordered. EDMS 17:56 CT Chest Angio R/O PE Ordered. EDMS 18:37 BED REQUEST+ADM ordered. EDMS 19:45 ANTI THROMBIN 3 PANEL (AG/AC) Ordered. EDMS 19:45 FACTOR V LEIDEN Ordered. EDMS 19:45 HEPARIN LEVEL Ordered. EDMS 19:45 Lupus Type Anticoagulant Ordered. EDMS 19:45 PROTEIN C FUNCTIONAL ACTIVITY Ordered. EDMS 19:46 PROTEIN S FUNCTIONAL ACTIVITY Ordered. EDMS 19:46 FACTOR II PROTHROMBIN GENE AN Ordered. EDMS 19:46 ANTINUCLEAR ANTIBODIES Ordered. EDMS 19:46 C REACTIVE PROTEIN QUANTITATIV Ordered. EDMS 19:46 ANTI-CARDIOLIPIN ANTIBODIES Ordered. EDMS 20:03 Apixaban 10 mg PO once ordered. cc10 20:13 Physician consultation: Dr. Quesada in to see patient in the ER, he reviewed the cc10 records and discussed the case with his PCP, he is comfortable discharging the patient on eliquis. He will see his PCP tomorrow for a recheck. Strict return instructions given to patient and family. They understand and agree with the plan. . 20:22 FIBRINOGEN Ordered. EDMS 01/01 11:53 T-Sheet-- Draft Copy was scanned into [employer] and attached to record. gb 11:53 ECG/EKG was scanned into [employer] and attached to record. gb Administered Medications: 12/31 16:17 Drug: NS 0.9% 1000 ml [sodium chloride 0.9 % intravenous solution] Route: IV; Rate: mk4 bolus; Site: right antecubital; 20:23 Drug: Apixaban 10 mg [apixaban 2.5 mg tablet (4 tabs)] Route: PO; kas2 Signatures: Dispatcher [employer] EDMS Roseann Tanner, Felice Reg gb Estevan, Haven Rodriguez,RN RAFAEL pml Shira Bianchi RN RN mk4 Shoaib Villalobos, PA-C PA-C cc10 Ekta Wellington RN RN kas2 The chart was reviewed and I authenticate all verbal orders and agree with the evaluation and treatment provided.Corrections: (The following items were deleted from the chart) 16:09 16:07 THYROID PROFILE+LAB ordered. EDMS EDMS 20:24 19:45 FIBRINOGEN ordered. EDMS EDMS Attachments: 17:09 [facility] Payment Agreement zo 01/01 11:53 T-Sheet-- Draft Copy gb 11:53 ECG/EKG gb Chart Complete MTDD
--- NOTE | 2017-01-02 21:26 | EDDOCDS ---
Physician Documentation [facility] Name: Sam aCrrasquillo Age: 61 yrs Sex: Male : 1955 Arrival Date: 12/31/2016 Time: 14:42 Bed 1 Private MD: Oneida Disposition: 12/31/16 20:04 Discharged to Home/Self Care. Impression: Pulmonary embolism. - Condition is Stable. - Discharge Instructions: Pulmonary Embolism. - Medication Reconciliation form. - Follow up: Oneida; When: Tomorrow; Reason: Wound/Symptom Recheck, Recheck today's complaints, Worsening of conditions, Continuance of care. - Problem is chronic. - Symptoms have improved. Historical: - Allergies: Sbiyacs-Hiq-Ecy Reductase Inhibitors; - Home Meds: 1. Prilosec 40 mg Oral cpDR 1 cap once daily 2. levothyroxine 50 mcg Oral tab 1 tab once daily (Last dose: 11/29/2016) - PMHx: Hypercholesterolemia; Hypertension; Hypothyroidism; - PSHx: none; - Social history: Smoking status: Patient states was never smoker of tobacco. No barriers to communication noted, The patient speaks fluent Occitan, Speaks appropriately for age. - Family history: Not pertinent. - : The pt / caregiver states he / she is not on anticoagulants. Home medication list is obtained from the patient. - Exposure Risk Screening:: None identified. Vital Signs: 12/31 14:44 BP 133 / 104 RA Sitting (auto/reg); Pulse 99; Resp 18; Temp 97.3; Pulse Ox 97% on R/A; jrd Weight 136.08 kg / 300.01 lbs (R); Height 5 ft. 8 in. (172.72 cm) (R); Pain 3/10; 14:48 BP 139 / 89 RA Sitting (man/lg); jrd 19:00 BP 153 / 93 (auto/); kas2 19:00 Pulse 64 MON; Pulse Ox 97% ; kas2 19:29 Resp 18; Temp 97.9(O); Pain 0/10; kas2 20:24 BP 158 / 88; Pulse 65; Resp 18; Temp 98.0(O); Pulse Ox 99% on R/A; Pain 0/10; kas2 14:44 Body Mass Index 45.61 (136.08 kg, 172.72 cm) jrd MDM: 15:21 ECG WITH READING ER PHYS+CARDIAG ordered. EDMS 16:04 NS 0.9% 1000 ml IV at bolus once ordered. cc10 16:04 IV Saline Lock ordered. cc10 16:04 Undress patient appropriately for examination ordered. cc10 16:05 Basic Metabolic Profile Ordered. EDMS 16:05 CBC with Diff Ordered. EDMS 16:05 Cardiac Injury Profile Ordered. EDMS 16:05 Lipase Ordered. EDMS 16:05 Liver Profile Ordered. EDMS 16:05 Troponin Ordered. EDMS 16:05 Urinalysis Ordered. EDMS 16:05 D-Dimer Quant Ordered. EDMS 16:06 NOTHING BY MOUTH+DIET ordered. EDMS 16:09 THYROID PROFILE Ordered. EDMS 16:56 Financial registration complete. zo 17:09 [facility] Payment Agreement was scanned into [employer] and attached to record. zo 17:44 CBC with Diff Reviewed. cc10 17:44 Urinalysis Reviewed. cc10 17:44 THYROID PROFILE Reviewed. cc10 17:44 Basic Metabolic Profile Reviewed. cc10 17:44 Cardiac Injury Profile Reviewed. cc10 17:44 Lipase Reviewed. cc10 17:44 Liver Profile Reviewed. cc10 17:44 Troponin Reviewed. cc10 17:50 D-Dimer Quant Reviewed. cc10 17:56 CT Head Without Contrast Ordered. EDMS 17:56 CT Chest Angio R/O PE Ordered. EDMS 18:37 BED REQUEST+ADM ordered. EDMS 19:45 ANTI THROMBIN 3 PANEL (AG/AC) Ordered. EDMS 19:45 FACTOR V LEIDEN Ordered. EDMS 19:45 HEPARIN LEVEL Ordered. EDMS 19:45 Lupus Type Anticoagulant Ordered. EDMS 19:45 PROTEIN C FUNCTIONAL ACTIVITY Ordered. EDMS 19:46 PROTEIN S FUNCTIONAL ACTIVITY Ordered. EDMS 19:46 FACTOR II PROTHROMBIN GENE AN Ordered. EDMS 19:46 ANTINUCLEAR ANTIBODIES Ordered. EDMS 19:46 C REACTIVE PROTEIN QUANTITATIV Ordered. EDMS 19:46 ANTI-CARDIOLIPIN ANTIBODIES Ordered. EDMS 20:03 Apixaban 10 mg PO once ordered. cc10 20:13 Physician consultation: Dr. Quesada in to see patient in the ER, he reviewed the cc10 records and discussed the case with his PCP, he is comfortable discharging the patient on eliquis. He will see his PCP tomorrow for a recheck. Strict return instructions given to patient and family. They understand and agree with the plan. . 20:22 FIBRINOGEN Ordered. EDMS 01/01 11:53 T-Sheet-- Draft Copy was scanned into [employer] and attached to record. gb 11:53 ECG/EKG was scanned into [employer] and attached to record. gb Administered Medications: 12/31 16:17 Drug: NS 0.9% 1000 ml [sodium chloride 0.9 % intravenous solution] Route: IV; Rate: mk4 bolus; Site: right antecubital; 20:23 Drug: Apixaban 10 mg [apixaban 2.5 mg tablet (4 tabs)] Route: PO; kas2 Signatures: Dispatcher [employer] EDMS Roseann Tanner, Felice Reg gb Estevan, Haven Rodirguez,RN RAFAEL pml Shira Bianchi RN RN mk4 Shoaib Villalobos, PA-C PA-C cc10 Ekta Wellington RN RN kas2 The chart was reviewed and I authenticate all verbal orders and agree with the evaluation and treatment provided.Corrections: (The following items were deleted from the chart) 16:09 16:07 THYROID PROFILE+LAB ordered. EDMS EDMS 20:24 19:45 FIBRINOGEN ordered. EDMS EDMS Attachments: 17:09 [facility] Payment Agreement zo 01/01 11:53 T-Sheet-- Draft Copy gb 11:53 ECG/EKG gb Chart Complete MTDD
--- NOTE | 2017-01-07 16:50 | EDDOCDS ---
Physician Documentation [facility] Name: Sam Carrasquillo Age: 61 yrs Sex: Male : 1955 Arrival Date: 12/31/2016 Time: 14:42 Bed 1 Private MD: Oneida Disposition: 12/31/16 20:04 Discharged to Home/Self Care. Impression: Pulmonary embolism. - Condition is Stable. - Discharge Instructions: Pulmonary Embolism. - Medication Reconciliation form. - Follow up: Oneida; When: Tomorrow; Reason: Wound/Symptom Recheck, Recheck today's complaints, Worsening of conditions, Continuance of care. - Problem is chronic. - Symptoms have improved. Historical: - Allergies: Skqxmzb-Fiy-Tol Reductase Inhibitors; - Home Meds: 1. Prilosec 40 mg Oral cpDR 1 cap once daily 2. levothyroxine 50 mcg Oral tab 1 tab once daily (Last dose: 11/29/2016) - PMHx: Hypercholesterolemia; Hypertension; Hypothyroidism; - PSHx: none; - Social history: Smoking status: Patient states was never smoker of tobacco. No barriers to communication noted, The patient speaks fluent Frisian, Speaks appropriately for age. - Family history: Not pertinent. - : The pt / caregiver states he / she is not on anticoagulants. Home medication list is obtained from the patient. - Exposure Risk Screening:: None identified. Vital Signs: 12/31 14:44 BP 133 / 104 RA Sitting (auto/reg); Pulse 99; Resp 18; Temp 97.3; Pulse Ox 97% on R/A; jrd Weight 136.08 kg / 300.01 lbs (R); Height 5 ft. 8 in. (172.72 cm) (R); Pain 3/10; 14:48 BP 139 / 89 RA Sitting (man/lg); jrd 19:00 BP 153 / 93 (auto/); kas2 19:00 Pulse 64 MON; Pulse Ox 97% ; kas2 19:29 Resp 18; Temp 97.9(O); Pain 0/10; kas2 20:24 BP 158 / 88; Pulse 65; Resp 18; Temp 98.0(O); Pulse Ox 99% on R/A; Pain 0/10; kas2 14:44 Body Mass Index 45.61 (136.08 kg, 172.72 cm) jrd MDM: 15:21 ECG WITH READING ER PHYS+CARDIAG ordered. EDMS 16:04 NS 0.9% 1000 ml IV at bolus once ordered. cc10 16:04 IV Saline Lock ordered. cc10 16:04 Undress patient appropriately for examination ordered. cc10 16:05 Basic Metabolic Profile Ordered. EDMS 16:05 CBC with Diff Ordered. EDMS 16:05 Cardiac Injury Profile Ordered. EDMS 16:05 Lipase Ordered. EDMS 16:05 Liver Profile Ordered. EDMS 16:05 Troponin Ordered. EDMS 16:05 Urinalysis Ordered. EDMS 16:05 D-Dimer Quant Ordered. EDMS 16:06 NOTHING BY MOUTH+DIET ordered. EDMS 16:09 THYROID PROFILE Ordered. EDMS 16:56 Financial registration complete. zo 17:09 [facility] Payment Agreement was scanned into [employer] and attached to record. zo 17:44 CBC with Diff Reviewed. cc10 17:44 Urinalysis Reviewed. cc10 17:44 THYROID PROFILE Reviewed. cc10 17:44 Basic Metabolic Profile Reviewed. cc10 17:44 Cardiac Injury Profile Reviewed. cc10 17:44 Lipase Reviewed. cc10 17:44 Liver Profile Reviewed. cc10 17:44 Troponin Reviewed. cc10 17:50 D-Dimer Quant Reviewed. cc10 17:56 CT Head Without Contrast Ordered. EDMS 17:56 CT Chest Angio R/O PE Ordered. EDMS 18:37 BED REQUEST+ADM ordered. EDMS 19:45 ANTI THROMBIN 3 PANEL (AG/AC) Ordered. EDMS 19:45 FACTOR V LEIDEN Ordered. EDMS 19:45 HEPARIN LEVEL Ordered. EDMS 19:45 Lupus Type Anticoagulant Ordered. EDMS 19:45 PROTEIN C FUNCTIONAL ACTIVITY Ordered. EDMS 19:46 PROTEIN S FUNCTIONAL ACTIVITY Ordered. EDMS 19:46 FACTOR II PROTHROMBIN GENE AN Ordered. EDMS 19:46 ANTINUCLEAR ANTIBODIES Ordered. EDMS 19:46 C REACTIVE PROTEIN QUANTITATIV Ordered. EDMS 19:46 ANTI-CARDIOLIPIN ANTIBODIES Ordered. EDMS 20:03 Apixaban 10 mg PO once ordered. cc10 20:13 Physician consultation: Dr. Quesada in to see patient in the ER, he reviewed the cc10 records and discussed the case with his PCP, he is comfortable discharging the patient on eliquis. He will see his PCP tomorrow for a recheck. Strict return instructions given to patient and family. They understand and agree with the plan. . 20:22 FIBRINOGEN Ordered. EDMS 01/01 11:53 T-Sheet-- Draft Copy was scanned into [employer] and attached to record. gb 11:53 ECG/EKG was scanned into [employer] and attached to record. gb Administered Medications: 12/31 16:17 Drug: NS 0.9% 1000 ml [sodium chloride 0.9 % intravenous solution] Route: IV; Rate: mk4 bolus; Site: right antecubital; 20:23 Drug: Apixaban 10 mg [apixaban 2.5 mg tablet (4 tabs)] Route: PO; kas2 Signatures: Dispatcher [employer] EDMS Roseann Tanner, Felice Reg gb Estevan, Haven Rodriguez,RN RAFAEL pml Shira Bianchi RN RN mk4 Shoaib Villalobos, PA-C PA-C cc10 Ekta Wellington RN RN kas2 The chart was reviewed and I authenticate all verbal orders and agree with the evaluation and treatment provided.Corrections: (The following items were deleted from the chart) 16:09 16:07 THYROID PROFILE+LAB ordered. EDMS EDMS 20:24 19:45 FIBRINOGEN ordered. EDMS EDMS Attachments: 17:09 [facility] [place] Payment Agreement zo 11:53 ECG/EKG Chart Complete MTDD
--- NOTE | 2017-01-07 16:50 | EDDOCDS ---
Physician Documentation [facility] Name: Sam Carrasquillo Age: 61 yrs Sex: Male : 1955 Arrival Date: 12/31/2016 Time: 14:42 Bed 1 Private MD: Oneida Disposition: 12/31/16 20:04 Discharged to Home/Self Care. Impression: Pulmonary embolism. - Condition is Stable. - Discharge Instructions: Pulmonary Embolism. - Medication Reconciliation form. - Follow up: Oneida; When: Tomorrow; Reason: Wound/Symptom Recheck, Recheck today's complaints, Worsening of conditions, Continuance of care. - Problem is chronic. - Symptoms have improved. Historical: - Allergies: Eabsezx-Kpc-Eks Reductase Inhibitors; - Home Meds: 1. Prilosec 40 mg Oral cpDR 1 cap once daily 2. levothyroxine 50 mcg Oral tab 1 tab once daily (Last dose: 11/29/2016) - PMHx: Hypercholesterolemia; Hypertension; Hypothyroidism; - PSHx: none; - Social history: Smoking status: Patient states was never smoker of tobacco. No barriers to communication noted, The patient speaks fluent Bulgarian, Speaks appropriately for age. - Family history: Not pertinent. - : The pt / caregiver states he / she is not on anticoagulants. Home medication list is obtained from the patient. - Exposure Risk Screening:: None identified. Vital Signs: 12/31 14:44 BP 133 / 104 RA Sitting (auto/reg); Pulse 99; Resp 18; Temp 97.3; Pulse Ox 97% on R/A; jrd Weight 136.08 kg / 300.01 lbs (R); Height 5 ft. 8 in. (172.72 cm) (R); Pain 3/10; 14:48 BP 139 / 89 RA Sitting (man/lg); jrd 19:00 BP 153 / 93 (auto/); kas2 19:00 Pulse 64 MON; Pulse Ox 97% ; kas2 19:29 Resp 18; Temp 97.9(O); Pain 0/10; kas2 20:24 BP 158 / 88; Pulse 65; Resp 18; Temp 98.0(O); Pulse Ox 99% on R/A; Pain 0/10; kas2 14:44 Body Mass Index 45.61 (136.08 kg, 172.72 cm) jrd MDM: 15:21 ECG WITH READING ER PHYS+CARDIAG ordered. EDMS 16:04 NS 0.9% 1000 ml IV at bolus once ordered. cc10 16:04 IV Saline Lock ordered. cc10 16:04 Undress patient appropriately for examination ordered. cc10 16:05 Basic Metabolic Profile Ordered. EDMS 16:05 CBC with Diff Ordered. EDMS 16:05 Cardiac Injury Profile Ordered. EDMS 16:05 Lipase Ordered. EDMS 16:05 Liver Profile Ordered. EDMS 16:05 Troponin Ordered. EDMS 16:05 Urinalysis Ordered. EDMS 16:05 D-Dimer Quant Ordered. EDMS 16:06 NOTHING BY MOUTH+DIET ordered. EDMS 16:09 THYROID PROFILE Ordered. EDMS 16:56 Financial registration complete. zo 17:09 [facility] Payment Agreement was scanned into [employer] and attached to record. zo 17:44 CBC with Diff Reviewed. cc10 17:44 Urinalysis Reviewed. cc10 17:44 THYROID PROFILE Reviewed. cc10 17:44 Basic Metabolic Profile Reviewed. cc10 17:44 Cardiac Injury Profile Reviewed. cc10 17:44 Lipase Reviewed. cc10 17:44 Liver Profile Reviewed. cc10 17:44 Troponin Reviewed. cc10 17:50 D-Dimer Quant Reviewed. cc10 17:56 CT Head Without Contrast Ordered. EDMS 17:56 CT Chest Angio R/O PE Ordered. EDMS 18:37 BED REQUEST+ADM ordered. EDMS 19:45 ANTI THROMBIN 3 PANEL (AG/AC) Ordered. EDMS 19:45 FACTOR V LEIDEN Ordered. EDMS 19:45 HEPARIN LEVEL Ordered. EDMS 19:45 Lupus Type Anticoagulant Ordered. EDMS 19:45 PROTEIN C FUNCTIONAL ACTIVITY Ordered. EDMS 19:46 PROTEIN S FUNCTIONAL ACTIVITY Ordered. EDMS 19:46 FACTOR II PROTHROMBIN GENE AN Ordered. EDMS 19:46 ANTINUCLEAR ANTIBODIES Ordered. EDMS 19:46 C REACTIVE PROTEIN QUANTITATIV Ordered. EDMS 19:46 ANTI-CARDIOLIPIN ANTIBODIES Ordered. EDMS 20:03 Apixaban 10 mg PO once ordered. cc10 20:13 Physician consultation: Dr. Quesada in to see patient in the ER, he reviewed the cc10 records and discussed the case with his PCP, he is comfortable discharging the patient on eliquis. He will see his PCP tomorrow for a recheck. Strict return instructions given to patient and family. They understand and agree with the plan. . 20:22 FIBRINOGEN Ordered. EDMS 01/01 11:53 T-Sheet-- Draft Copy was scanned into [employer] and attached to record. gb 11:53 ECG/EKG was scanned into [employer] and attached to record. gb Administered Medications: 12/31 16:17 Drug: NS 0.9% 1000 ml [sodium chloride 0.9 % intravenous solution] Route: IV; Rate: mk4 bolus; Site: right antecubital; 20:23 Drug: Apixaban 10 mg [apixaban 2.5 mg tablet (4 tabs)] Route: PO; kas2 Signatures: Dispatcher [employer] EDMS Roseann Tanner, Felice Reg gb Estevan, Haven Rodriguez,RN RAFAEL pml Shira Bianchi RN RN mk4 Shoaib Villalobos, PA-C PA-C cc10 Ekta Wellington RN RN kas2 The chart was reviewed and I authenticate all verbal orders and agree with the evaluation and treatment provided.Corrections: (The following items were deleted from the chart) 16:09 16:07 THYROID PROFILE+LAB ordered. EDMS EDMS 20:24 19:45 FIBRINOGEN ordered. EDMS EDMS Attachments: 17:09 [facility] Payment Agreement zo 11:53 ECG/EKG Chart Complete MTDD
--- NOTE | 2017-01-07 16:51 | EDDOCDS ---
Nurse's Notes [facility] Name: Caren Carrasquillo Age: 61 yrs Sex: Male : 1955 Arrival Date: 12/31/2016 Time: 14:42 Bed 1 Private MD: Oneida Diagnosis: Pulmonary embolism Presentation: 12/31 14:49 Presenting complaint: Patient states: weakness and stomach ache, light headed, short of pml breath - ongoing issue since October. has seen PCP with blood work and cardiology referral and CT of abdomen. reports weight loss of 50 lbs since xm. had upper GI scope done and awaiting results. reports increased weakness over last few days. The last date and time the patient was known to be well was was at an unknown time on November 04, 2016. No acute neurological deficit is noted. Pre-hospital glucose is not applicable to this patient. Adult Sepsis Screening: The patient does not have new or worsening altered mentation. Patient's respiratory rate is less than 22. Systolic blood pressure is greater than 100. Patient has a qSOFA score of 0- Negative Sepsis Screen. Suicide/Homicide risk assessment- the patient denies having any suicidal and/or homicidal ideations and does not present with any other emotional, behavioral or mental health complaints. Status: Patient is not a financial service professional or dependent. Transition of care: patient was not received from another setting of care. 14:49 Acuity: ISN Level 3 pml 14:49 Method Of Arrival: Walkin/Carried/Asstd pml Triage Assessment: 14:53 The onset of the patients symptoms was more than three hours ago. General: Appears in pml no apparent distress, comfortable, Behavior is appropriate for age, cooperative. Pain: Location: abdomen Pain currently is 3 out of 10 on a pain scale. HIV screening NA for this visit Offered previously. Neurological: Level of Consciousness is awake, alert, Oriented to person, place, time, Reports no additional symptoms. Historical: - Allergies: Lfaxbrm-Syu-Tay Reductase Inhibitors; - Home Meds: 1. Prilosec 40 mg Oral cpDR 1 cap once daily 2. levothyroxine 50 mcg Oral tab 1 tab once daily (Last dose: 11/29/2016) - PMHx: Hypercholesterolemia; Hypertension; Hypothyroidism; - PSHx: none; - Social history: Smoking status: Patient states was never smoker of tobacco. No barriers to communication noted, The patient speaks fluent Kyrgyz, Speaks appropriately for age. - Family history: Not pertinent. - : The pt / caregiver states he / she is not on anticoagulants. Home medication list is obtained from the patient. - Exposure Risk Screening:: None identified. Screenin:18 Screening information is obtained from the patient. Fall risk: No risks identified. mk4 Assistance ADL's: requires no assistance with activities of daily living. Abuse/DV Screen: The patient / caregiver reports he/she is: not in a situation that causes fear, pain or injury. Nutritional screening: No deficits noted. Advance Directives: Currently, there is no health care proxy. There is no active DNR order. There is no living will. There is no Power of Stemhole Borer And Topper. Advance directive information has not previously been placed in an [facility] medical record. Further advance directive information is declined. home support is adequate. 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 is here today because he wants further testing , he is sure something is being missed,. Pain: Denies pain. Pain began months ago. Neurological: Level of Consciousness is awake, alert, Oriented to person, place, time, Gait is steady, Speech is normal, Facial symmetry appears normal, Pupils are PERRLA, Denies blurred vision dizziness, numbness headache photophobia. Respiratory: Airway is patent Respiratory effort is even, unlabored, Respiratory pattern is regular, Breath sounds are clear bilaterally. GI: Abdomen is obese, Bowel sounds present X 4 quads. Abd is soft and non tender Reports Denies anorexia, constipation, cramping, diarrhea, incontinence, intolerance of fluids, intolerance of food, nausea, vomiting, however does report a "full feeling in abdomen". Derm: Skin is intact, is healthy with good turgor, Skin is pink, warm & dry. 17:10 General: Appears in no apparent distress, Behavior is cooperative, pleasant. General: mk4 watching TV in room with so, not excessively sleepy, remains awake and alert. Pain: Denies pain. Neurological: Level of Consciousness is awake, alert, Oriented to person, place, time, Denies blurred vision dizziness, headache. Respiratory: Airway is patent Respiratory effort is even, unlabored, Respiratory pattern is regular. 18:00 General: Appears in no apparent distress, comfortable, Behavior is cooperative, mk4 pleasant, returned from CT no new complaints . 18:59 General: Verbal report given by Shanell Bianchi RN. Assumed care of patient at this time.. kas2 19:27 General: Appears in no apparent distress, comfortable, Behavior is appropriate for age, kas2 cooperative. Pain: Denies pain. Neurological: Level of Consciousness is awake, alert, Oriented to person, place, time, Gait is steady, Speech is normal, Facial symmetry appears normal, Pupils are PERRLA. Cardiovascular: Capillary refill < 3 seconds Heart tones S1 S2 present Rhythm is sinus rhythm No ectopy. Chest pain is denied. Respiratory: Airway is patent Respiratory effort is even, unlabored, Respiratory pattern is regular, symmetrical, Breath sounds are clear bilaterally. Derm: Skin is intact, Skin is dry, Skin is pink, warm & dry. Skin temperature is warm. 20:24 General: Appears in no apparent distress, comfortable, Behavior is appropriate for age, kas2 cooperative. Pain: Denies pain. Neurological: No deficits noted. Cardiovascular: Rhythm is sinus rhythm No ectopy. Respiratory: Airway is patent Respiratory effort is even, unlabored, Respiratory pattern is regular, symmetrical. Derm: Skin is dry, Skin is pink, warm & dry. Skin temperature is warm. Vital Signs: 14:44 BP 133 / 104 RA Sitting (auto/reg); Pulse 99; Resp 18; Temp 97.3; Pulse Ox 97% on R/A; jrd Weight 136.08 kg (R); Height 5 ft. 8 in. (172.72 cm) (R); Pain 3/10; 14:48 BP 139 / 89 RA Sitting (man/lg); jrd 19:00 BP 153 / 93 (auto/); kas2 19:00 Pulse 64 MON; Pulse Ox 97% ; kas2 19:29 Resp 18; Temp 97.9(O); Pain 0/10; kas2 20:24 BP 158 / 88; Pulse 65; Resp 18; Temp 98.0(O); Pulse Ox 99% on R/A; Pain 0/10; kas2 14:44 Body Mass Index 45.61 (136.08 kg, 172.72 cm) jrd Vitals: 14:44 Log In Time: December 31, 2016 at 14:40. jrd 14:44 RN notified that patient meets Red Flag criteria. jrd 14:53 Glucose Measurement D-stick deferred by provider. pml ED Course: 14:44 Patient visited by Robb Spear PCA. jrd 14:44 Oneida is Private Physician. jrd 14:44 Patient moved to Waiting jrd 14:44 notified of Patients complaints, RN stated triage appropriate. jrd 14:46 Patient visited by Robb Spear PCA. jrd 14:48 Patient visited by Robb Spear PCA. jrd 14:50 Patient moved to Pre RCE jrd 14:51 Triage Initiated pml 15:02 Patient moved to Triage 3 ar3 15:31 EKG done. (by ED staff). Reviewed by Ca Mixon MD. ar3 15:32 Patient visited by Marj Myers PCA. ar3 15:52 Shoaib Villalobos PA-C is PHCP. cc10 15:52 Ca Mixon MD is Attending Physician. cc10 15:52 Patient visited by Shoaib Villalobos PA-C. cc10 15:52 Patient visited by Shoaib Villalobos PA-C. cc10 16:05 Patient moved to I4 / js13 16:18 The patient / caregiver is instructed regarding the plan of care and ED course. mk4 16:18 Inserted saline lock: 20 gauge in right forearm and blood collected. mk4 16:18 No procedures done that require assistance. mk4 16:26 Patient visited by Shira Bianchi RN. mk4 16:58 Patient visited by Shira Bianchi RN. mk4 17:09 [facility] Payment Agreement was scanned into Medical Envelope and attached to record. zo 17:29 Patient visited by Shira Bianchi RN. mk4 18:00 Patient visited by Shira Bianchi RN. mk4 18:32 Patient visited by Shira Bianchi RN. mk4 18:34 CT Head Without Contrast Returned. EDMS 18:34 CT Chest Angio R/O PE Returned. EDMS 18:49 Meche Cannon,RN is Primary Nurse. mk4 18:49 Patient moved to 1 mk4 18:53 Patient visited by Robb Spear PCA. jrd 18:59 Ekta Wellington,RN is Primary Nurse. kas2 19:00 Patient visited by Ekta Wellington RN. kas2 19:29 Patient visited by Ekta Wellington RN. kas2 20:04 Oneida is Referral Physician. cc10 20:24 FIBRINOGEN Sent. kas2 20:25 Patient visited by Ekta Wellington RN. kas2 21:07 EKG-ADULT Returned. EDMS 02 11:53 T-Sheet-- Draft Copy was scanned into Medical Envelope and attached to record. gb 11:53 ECG/EKG was scanned into Medical Envelope and attached to record. gb Administered Medications: 12/31 16:17 Drug: NS 0.9% 1000 ml [sodium chloride 0.9 % intravenous solution] Route: IV; Rate: mk4 bolus; Site: right antecubital; 20:23 Drug: Apixaban 10 mg [apixaban 2.5 mg tablet (4 tabs)] Route: PO; kas2 Order Results: Lab Order: Basic Metabolic Profile; SPEC'M 12/31/16 16:29 Test: GLUCOSE, FASTING; Value: 100; Range: 80-110; Units: MG/DL; Status: F Test: BLOOD UREA NITROGEN; Value: 10; Range: 7-18; Units: MG/DL; Status: F Test: CREATININE FOR GFR; Value: 1.08; Range: 0.70-1.30; Units: MG/DL; Status: F Test: GLOMERULAR FILTRATION RATE; Value: > 60.0; Range: >49; Status: F Test: SODIUM LEVEL; Value: 142; Range: 136-145; Units: MEQ/L; Status: F Test: POTASSIUM SERUM; Value: 3.7; Range: 3.5-5.1; Units: MEQ/L; Status: F Test: CHLORIDE LEVEL; Value: 107; Range: 98-107; Units: MEQ/L; Status: F Test: CARBON DIOXIDE LEVEL; Value: 23; Range: 21-32; Units: MEQ/L; Status: F Test: ANION GAP; Value: 12; Range: 8-16; Units: MEQ/L; Status: F Test: CALCIUM LEVEL; Value: 9.0; Range: 8.8-10.2; Units: MG/DL; Status: F Test Note: ; Units are mL/min/1.73 m2 Chronic Kidney Disease Staging per NKF: Stage I & II GFR >=60 Normal to Mildly Decreased Stage III GFR 30-59 Moderately Decreased Stage IV GFR 15-29 Severely Decreased Stage V GFR <15 Very Little GFR Left ESRD GFR <15 on [facility] Lab Order: CBC with Diff; SPEC'M 12/31/16 16:29 Test: WHITE BLOOD COUNT; Value: 7.5; Range: 4.0-10.0; Units: K/mm3; Status: F Test: RED BLOOD COUNT; Value: 5.27; Range: 4.30-6.10; Units: M/mm3; Status: F Test: HEMOGLOBIN; Value: 16.2; Range: 14.0-18.0; Units: g/dl; Status: F Test: HEMATOCRIT; Value: 46.2; Range: 42.0-52.0; Units: %; Status: F Test: MEAN CORPUSCULAR VOLUME; Value: 87.7; Range: 80.0-96.0; Units: fl; Status: F Test: MEAN CORPUSCULAR HEMOGLOBIN; Value: 30.6; Range: 27.0-33.0; Units: pg; Status: F Test: MEAN CORPUSCULAR HGB CONC; Value: 34.9; Range: 32.0-36.5; Units: g/dl; Status: F Test: RED CELL DISTRIBUTION WIDTH; Value: 12.5; Range: 11.5-14.5; Units: %; Status: F Test: PLATELET COUNT, AUTOMATED; Value: 215; Range: 150-450; Units: k/mm3; Status: F Test: NEUTROPHILS %; Value: 70.4; Range: 36.0-66.0; Abnormal: Above high normal; Units: %; Status: F Test: LYMPH %; Value: 18.3; Range: 24.0-44.0; Abnormal: Below low normal; Units: %; Status: F Test: MONO %; Value: 7.2; Range: 0.0-5.0; Abnormal: Above high normal; Units: %; Status: F Test: EOS %; Value: 1.8; Range: 0.0-3.0; Units: %; Status: F Test: BASO %; Value: 0.6; Range: 0.0-1.0; Units: %; Status: F Test: LARGE UNSTAINED CELL %; Value: 1.6; Range: 0.0-4.0; Units: %; Status: F Test: NEUTROPHILS #; Value: 5.3; Range: 1.8-7.7; Units: K/mm3; Status: F Test: LYMPH #; Value: 1.5; Range: 1.5-4.5; Units: K/mm3; Status: F Test: MONO #; Value: 0.5; Range: 0.0-0.8; Units: K/mm3; Status: F Test: EOS #; Value: 0.1; Range: 0.0-0.50; Units: K/mm3; Status: F Test: BASO #; Value: 0.0; Range: 0.0-0.2; Units: K/mm3; Status: F Test: LARGE UNSTAINED CELL #; Value: 0.1; Range: 0.0-0.4; Units: K/mm3; Status: F Lab Order: Cardiac Injury Profile; [facility] 12/31/16 16:29 Test: CPK CREATINE PHOSPHOKINASE; Value: 108; Range: 39-308; Units: U/L; Status: F Test: CK-MB VALUE MASS; Value: 1.3; Range: 0.0-3.6; Units: NG/ML; Status: F Test: MB/CK RELATIVE INDEX; Value: 1.20; Range: < OR =4; Status: F Test Note: ; DIAGNOSIS CRITERIA MMB ng/ml Relative Index (RI) NON-AMI < or = 5 N/A [place]ONE > 5 < or = 4 AMI > 5 > 4 Lab Order: Lipase; [facility] 12/31/16 16:29 Test: LIPASE; Value: 120; Range: 73-393; Units: U/L; Status: F Lab Order: Liver Profile; [facility] 12/31/16 16:29 Test: AST/SGOT; Value: 21; Range: 15-37; Units: U/L; Status: F Test: ALT/SGPT; Value: 20; Range: 12-78; Units: U/L; Status: F Test: ALKALINE PHOSPHATASE; Value: 57; Range: 45-117; Units: U/L; Status: F Test: BILIRUBIN,TOTAL; Value: 0.8; Range: 0.2-1.0; Units: MG/DL; Status: F Test: BILIRUBIN,DIRECT; Value: 0.2; Range: 0.0-0.2; Units: MG/DL; Status: F Test: TOTAL PROTEIN; Value: 7.3; Range: 6.4-8.2; Units: GM/DL; Status: F Test: ALBUMIN; Value: 3.9; Range: 3.2-5.2; Units: GM/DL; Status: F Test: ALBUMIN/GLOBULIN RATIO; Value: 1.15; Range: 1.00-1.93; Status: F Lab Order: Troponin; SPEC'M 12/31/16 16:29 Test: TROPONIN I; Value: < 0.02; Range: < 0.10; Units: NG/ML; Status: F Test Note: ; Troponin I Reference Interval for [employer] LOCI: 99th Percentile= 0.00-0.045 ng/ml Risk Stratification: <= 0.10 ng/ml Decreased Risk for Adverse Clinical Events. 0.10-1.50 ng/ml Increased Risk for Adverse Clinical Events. Evaluation of additional criterion and/or repeat testing in 2-6 hours is suggested to rule out myocardial damage. >= 1.50 ng/ml Indicative of Myocardial Injury. Lab Order: Urinalysis; SPEC'M 12/31/16 16:07 Test: APPEARANCE, URINE; Value: CLEAR; Range: CLEAR; Status: F Test: COLOR, URINE; Value: YELLOW; Range: YELLOW; Status: F Test: PH,URINE; Value: 6.0; Range: 5.0-9.0; Units: UNITS; Status: F Test: SPECIFIC GRAVITY URINE AUTO; Value: 1.012; Range: 1.002-1.035; Status: F Test: PROTEIN, URINE AUTO; Value: NEGATIVE; Range: NEGATIVE; Units: mg/dL; Status: F Test: GLUCOSE, URINE (UA) AUTO; Value: NEGATIVE; Range: NEGATIVE; Units: mg/dL; Status: F Test: KETONE, URINE AUTO; Value: NEGATIVE; Range: NEGATIVE; Units: mg/dL; Status: F Test: UROBILINOGEN, URINE AUTO; Value: 0.2; Range: 0.0-2.0; Units: mg/dL; Status: F Test: BILIRUBIN, URINE AUTO; Value: NEGATIVE; Range: NEGATIVE; Status: F Test: NITRITE, URINE AUTO; Value: NEGATIVE; Range: NEGATIVE; Status: F Test: LEUKOCYTE ESTERASE, URINE AUTO; Value: NEGATIVE; Range: NEGATIVE; Status: F Test: BLOOD, URINE BLOOD; Value: NEGATIVE; Range: NEGATIVE; Status: F Test: WBC, URINE AUTO; Value: 1; Range: 0-3; Units: /HPF; Status: F Test: RBC, URINE AUTO; Value: 1; Range: 0-3; Units: /HPF; Status: F Test: BACTERIA, URINE AUTO; Value: 1+; Range: NEGATIVE; Abnormal: Above high normal; Status: F Test: SQUAMOUS EPITHELIAL CELL UR AU; Value: 0; Range: 0-6; Units: /HPF; Status: F Test: MUCUS, URINE; Value: SMALL; Range: NEGATIVE; Status: F Test: HYALINE CAST, URINE AUTO; Value: 0; Range: 0-1; Units: /LPF; Status: F Lab Order: D-Dimer Quant; SPEC'M 12/31/16 16:29 Test: D-DIMER QUANT; Value: > 4000.0; Range: <500; Abnormal: Above high normal; Units: ng/ml; Status: F Lab Order: THYROID PROFILE; SPEC'M 12/31/16 16:29 Test: T UPTAKE; Value: 32; Range: 33-40; Abnormal: Below low normal; Units: %; Status: F Test: THYROXINE (T4); Value: 9.0; Range: 4.5-12.0; Units: UG/DL; Status: F Test: FREE THYROXINE INDEX; Value: 2.9; Range: 1.4-3.8; Units: %; Status: F Test: THYROID STIMULATING HORMONE; Value: 2.090; Range: 0.358-3.740; Units: uIU/ML; Status: F Lab Order: Lupus Type Anticoagulant; SPEC'M 12/31/16 20:09 Test: PTT LUPUS TYPE ANTICOAG SCREEN; Value: 1.1; Range: 0-1.2; Status: F Test Note: ; RESULT IS LESS THAN 1.2, NO FURTHER TESTING INDICATED. INTERPRETATION This test is to screen those individuals that may have a circulating lupus anticoagulant. If the LA Screen test is normal, and/or the LA Confirm test is normal, the presence of a Lupus Anticoagulant (LA) is unlikely, but does not completely exclude LA-like activity. If both tests or the LA Confirm test are elevated, the specimen will be reflexed to a hexagonal phase phospholipid test through our reference laboratory for confirmation. A positive hexagonal phase phospholipid is indicative of LA. A negative hexagonal phase phospholipid test may indicate a coagulation factor deficiency or a specific inhibitor. Lab Order: C REACTIVE PROTEIN QUANTITATIV; SPEC'M 12/31/16 20:10 Test: C REACTIVE PROTEIN QUANTITATIV; Value: 0.39; Range: 0.00-0.30; Abnormal: Above high normal; Units: MG/DL; Status: F Lab Order: FIBRINOGEN; SPEC'M 12/31/16 20:02 Test: FIBRINOGEN; Value: 350; Range: 221-452; Units: MG/DL; Status: F Radiology Order: EKG-ADULT Test: EKG-ADULT REASON FOR EXAMINATION: SOB/weakness; Stationary ECG Study; [facility] - ED; ; Test Date: 2016-12-31; Pat Name: CAREN CARRASQUILLO Department:; Room: -; Gender: M Buccaro: jefferson; : 1955 Requested By: Antonella Cui PA-C; Order Number: [id number] Reading MD: Ca Mixon; Measurements; Intervals [place]; Rate: 77 P: 28; NV: 234 QRS: 34; QRSD: 112 T: -5; QT: 372; QTc: 422; Interpretive Statements; SINUS RHYTHM WITH FIRST DEGREE AV BLOCK; MODERATE INTRAVENTRICULAR CONDUCTION DELAY; ; Electronically Signed On 12-31-2016 20:23:42 EST by Ca Mixon; Radiology Order: CT Head Without Contrast Test: CT Head Without Contrast REASON FOR EXAMINATION: weakness; Clinical: Headache and weakness .; ; Comparison: None .; ; Findings:; The ventricles, sulci, and cisterns are normal in position and appearance.; Greenfield-white differentiation is maintained. No acute intracranial hemorrhage,; mass/mass effect, pathology or trauma/injury. No evidence for acute infarction.; No extra-axial fluid collection. Calvarium is intact. Paranasal sinuses and; mastoid air cells are clear.; ; Impression:; Normal noncontrast head CT.; No evidence for acute intracranial pathology or trauma/injury.; ; ; Signed by; Robinson Singh MD 12/31/2016 06:14 P; Radiology Order: CT Chest Angio R/O PE Test: CT Chest Angio R/O PE REASON FOR EXAMINATION: Shortness of Breath; Clinical: Acute chest pain and shortness of breath.; ; Technique: Axial contrast enhanced images from the thoracic inlet to the upper; abdomen using 100 ml Isovue 370 intravenous contrast material with coronal and; sagittal re-formations.; ; Findings: Satisfactory enhancement of the pulmonary vasculature is achieved.; Pulmonary emboli are identified within the second order pulmonary arteries; extending to the right lower lobe (images 90 - 110) as well as small focus of; embolus extending to the medial right middle lobe (image 81) and smaller distal; branch emboli to the left lower lobe (images 99 - 110). No associated; consolidation, atelectasis, or pleural effusion. Mild cardiomegaly suggested.; Thoracic aorta is normal and without aneurysm or dissection. No pericardial; effusion noted. No adenopathy. Surrounding musculoskeletal structures are; intact.; ; ; Impression:; 1. Pulmonary emboli predominate within the second order right lower lobe; pulmonary arteries and to a lesser extent small focus extending to the right; middle lobe and distal left lower lobe branches. No associated pulmonary; parenchymal consolidation, atelectasis, or pleural effusion.; 2. Cardiomegaly. Normal thoracic aorta.; ; ; Signed by; Robinson Singh MD 12/31/2016 06:19 P; Outcome: 20:04 Discharge ordered by Provider. cc10 20:25 Discharge Assessment: patient administered narcotics - no. The following High Risk kas2 Discharge criteria are identified: None. Discharged to home ambulatory, with family. Condition: good Condition: stable Condition: improved. CT Study completed. Property :Personal belongings accompany Pt. 20:25 Patient left the ED. kas2 Signatures: Dispatcher [employer] EDMS Roseann Tanner, Reg Reg gb Estevan, Titi zo Lucia, Marj, MIRROR FINISHING MACHINE OPERATOR MIRROR FINISHING MACHINE OPERATOR ar3 Haven Colin,RN RN pml Yenni Dalton,RN RN js13 Shira Bianchi, RN RN mk4 Shoaib Villalobos, PA-C PA-C cc10 Robb Spear, MIRROR FINISHING MACHINE OPERATOR MIRROR FINISHING MACHINE OPERATOR d Ekta WellingtonRN RN kas2 Chart Complete MTDD
[2017-01-08 00:06] LABS: HEPARIN LEVEL ANTI Xa <0.10 IU/mL (.)
== END 2016-12-31 20:25 | disposition home or self-care (01) ==
LOC: M ED 14:42
DX: I26.99 Other pulmonary embolism without acute cor pulmonale (principal); E78.00 Pure hypercholesterolemia, unspecified; I10 Essential (primary) hypertension; E03.9 Hypothyroidism, unspecified; Z79.899 Other long term (current) drug therapy; Z88.8 Allergy status to other drugs, medicaments and biological substances
CPT/HCPCS: 36415; 70450; 71275; 80048; 80076; 81001; 81240; 81241; 82550; 82553; 83690; 84436; 84443; 84479; 85025; 85300; 85301; 85303; 85305; 85379; 85384; 85520; 85730; 86038; 86140; 86147; 93005; 99285; Q9967

== ENCOUNTER → 2017-01-09 | Outpatient (CLI) | payer OTHER ==
[~2017-01-09] MED LIST: OMEP40CA2 PO; VITA100066 PO
--- NOTE | 2017-01-09 12:55 | REP ---
Bilateral lower extremity Duplex Doppler venous ultrasound: Real time compression and duplex Doppler interrogation of the bilateral lower extremity deep venous system is performed. Bilaterally, the common femoral, superficial femoral and popliteal veins are fully compressible with transducer pressure and demonstrate normal spontaneous and phasic flow, without evidence of deep venous thrombosis. There is partial thrombosis of the right greater saphenous vein proximally. Impression: No evidence of deep venous thrombosis of the bilateral lower extremity femoral popliteal venous system. There is partial thrombosis of the right greater saphenous vein proximally. Signed by Peterson Greenfield MD 01/09/2017 12:46 P
--- NOTE | 2017-01-10 09:24 | REP ---
PET/CT: History: Pulmonary emboli, 50 pounds weight loss, decreased appetite, lower extremity edema. Rule out malignancy. Comparisons: Chest CT study December 31, 2016. Abdomen CT December 07, 2016. TECHNIQUE: 98 minutes following the intravenous injection of a 8.2 mCi dose of F-18 FDG, three-dimensional PET scintigraphy is acquired from the skull base to the proximal thighs. Triplanar noncontrast CT scanning is acquired through the same anatomic range for attenuation correction, and image registration with scan parameters optimized to minimize radiation exposure to the patient. PET scintigraphy and CT datasets were fused and displayed on a workstation with multiplanar and projection display capability. PET/CT Findings: Head and neck soft tissues are unremarkable except for some mild normal variant skeletal muscle and brown fat FDG tracer accumulation. There is no abnormal hypermetabolic uptake within the thorax. No hilar or mediastinal olivier uptake is seen. No pulmonary parenchymal hypermetabolic uptake is observed. In the abdomen and pelvis, there is normal FDG distribution to the liver, spleen, genitourinary and gastrointestinal tracts. No abnormal abdominal or pelvic hypermetabolic uptake is seen. Left colonic diverticulosis, some vascular calcification, and the granulomatous calcifications in the chest are noted as incidental findings. No abnormal skeletal hypermetabolic uptake is seen. Impression: Negative PET scintigraphy. Signed by Castillo Mcfadden MD 01/10/2017 10:13 A
== END ==
LOC: M RAD 11:30
PROVIDERS: ATTEND Family Medicine
DX: I26.99 Other pulmonary embolism without acute cor pulmonale (principal); R63.4 Abnormal weight loss; R53.81 Other malaise
CPT/HCPCS: 78815; 93970; A9552

== ENCOUNTER → 2017-01-15 | Outpatient (CLI) | payer OTHER ==
[~2017-01-15] MED LIST changes: +E-Z PAQUE 60% w/v SUSP 355ML BOTTLE As Ordered ONE; +E-Z-HD 98% w/w 340GM SUSP BTL As Ordered ONE
--- NOTE | 2017-01-15 17:15 | REP ---
UPPER GI AIR CONTRAST AND SMALL BOWEL FOLLOW-THROUGH: The procedure was performed under the direct supervision of Dr. Mcfadden. The images were reviewed with Dr. Mcfadden. The manager software film shows no organomegaly or pathological masses. The intestinal gas pattern is nonspecific. Liquid barium and gas producing granules were given in the erect position as well as liquid barium in the prone oblique position in order to perform a double contrast upper GI examination. Additionally liquid barium was given at the end of the examination in order to perform a small bowel follow-through. The oral and pharyngeal stages of deglutition are unremarkable. Esophageal transport is prompt and efficient and there is no esophagitis, stricture, mucosal ring, or hiatal hernia. Gastroesophageal reflux is not demonstrated on this examination. The stomach chaves are normally outlined. The rugal folds are smooth and regular. There is no gastritis, neoplasm or ulcer disease. The duodenal chaves are normally outlined. The mucosal folds are smooth and regular. There is no duodenitis, pancreatitis, peptic ulcer disease, or neoplasm. The visualized portion of the proximal small bowel appears normal in course and caliber. The barium column was followed through the small bowel to the level of the terminal ileum. Small bowel transit time is approximately 40 minutes. During fluoroscopy gentle palpation shows all loops are freely movable and pliable. There are no fixed or angulated loops. The small bowel mucosal pattern is normal in course and caliber. There is no transition to suggest a partial small bowel obstruction. Spot filming of terminal ileum shows it to be unremarkable. IMPRESSION: Essentially unremarkable double contrast upper GI and small bowel follow-through examination. 2 minutes and 18 seconds of fluoroscopy time was utilized for this procedure. Reviewed by EDDIE Garcia 01/16/2017 08:24 AEdited and Signed by Castillo Mcfadden MD 01/16/2017 12:20 P
== END ==
LOC: M RAD 08:28
PROVIDERS: ATTEND Internal Medicine Gastroenterology
DX: R68.81 Early satiety (principal); R63.4 Abnormal weight loss; R10.9 Unspecified abdominal pain; K31.89 Other diseases of stomach and duodenum

== ENCOUNTER → 2017-09-27 | Outpatient (CLI) | payer OTHER ==
[~2017-09-27] MED LIST changes: -E-Z PAQUE 60% w/v SUSP 355ML BOTTLE As Ordered ONE; -E-Z-HD 98% w/w 340GM SUSP BTL As Ordered ONE
[2017-09-27 13:33] LABS: BASO # 0.1 10^3/uL (0.0-0.2); BASO % 0.9 % (0.0-1.0); EOS # 0.1 10^3/uL (0.0-0.50); EOS % 2.4 % (0.0-3.0); IMMATURE GRANULOCYTE % 0.2 % (0-0); LYMPH # 1.6 10^3/uL (1.5-4.5); LYMPH % 30.1 % (24.0-44.0); MEAN CORPUSCULAR HEMOGLOBIN 29.2 pg (27.0-33.0); MEAN CORPUSCULAR HGB CONC 32.4 g/dl (32.0-36.5); MEAN CORPUSCULAR VOLUME 90.1 fl (80.0-96.0); MONO # 0.6 10^3/uL (0.0-0.8); MONO % 11.1 % (0.0-5.0); NEUTROPHILS % 55.3 % (36.0-66.0); PLATELET COUNT, AUTOMATED 210 10^3/uL (150-450); RED CELL DISTRIBUTION WIDTH 12.5 % (11.5-14.5); WHITE BLOOD COUNT 5.4 10^3/uL (4.0-10.0)
[2017-09-27 14:01] LABS: ALBUMIN 3.7 GM/DL (3.2-5.2); ALBUMIN/GLOBULIN RATIO 1.19 (1.00-1.93); ALKALINE PHOSPHATASE 40 U/L (45-117); ALT/SGPT 19 U/L (12-78); ANION GAP 8 MEQ/L (8-16); AST/SGOT 20 U/L (7-37); BILIRUBIN,TOTAL 0.5 MG/DL (0.2-1.0); BLOOD UREA NITROGEN 17 MG/DL (7-18); CALCIUM LEVEL 8.7 MG/DL (8.8-10.2); CARBON DIOXIDE LEVEL 28 MEQ/L (21-32); CHLORIDE LEVEL 104 MEQ/L (98-107); CHOLESTEROL LEVEL 183 MG/DL (<200); CREATININE FOR GFR 1.08 MG/DL (0.70-1.30); GLOMERULAR FILTRATION RATE > 60.0 (>49); GLUCOSE, FASTING 101 MG/DL (80-110); POTASSIUM SERUM 4.3 MEQ/L (3.5-5.1); SODIUM LEVEL 140 MEQ/L (136-145); TOTAL PROTEIN 6.8 GM/DL (6.4-8.2); TRIGLYCERIDES LEVEL 79 MG/DL (<150)
== END ==
LOC: M SMT 08:04
PROVIDERS: ATTEND Family Medicine
DX: I10 Essential (primary) hypertension (principal); E55.9 Vitamin D deficiency, unspecified; E78.00 Pure hypercholesterolemia, unspecified; G47.33 Obstructive sleep apnea (adult) (pediatric)

== ENCOUNTER → 2018-03-24 | Outpatient (CLI) | payer OTHER ==
[2018-03-24 13:27] LABS: ANION GAP 7 MEQ/L (8-16); BLOOD UREA NITROGEN 20 MG/DL (7-18); CALCIUM LEVEL 8.9 MG/DL (8.8-10.2); CARBON DIOXIDE LEVEL 28 MEQ/L (21-32); CHLORIDE LEVEL 106 MEQ/L (98-107); CREATININE FOR GFR 1.24 MG/DL (0.70-1.30); GLOMERULAR FILTRATION RATE > 60.0 (>49); GLUCOSE, FASTING 100 MG/DL (70-100); SODIUM LEVEL 141 MEQ/L (136-145)
== END ==
LOC: M SMT 08:31
DX: I10 Essential (primary) hypertension (principal)
CPT/HCPCS: 80048

== ENCOUNTER → 2018-09-24 | Outpatient (CLI) | payer OTHER ==
[2018-09-24 13:31] LABS: BASO # 0.1 10^3/uL (0.0-0.2); BASO % 1.1 % (0.0-1.0); EOS # 0.1 10^3/uL (0.0-0.50); EOS % 2.3 % (0.0-3.0); HEMATOCRIT 48.3 % (42.0-52.0); IMMATURE GRANULOCYTE % 0.4 % (0-3.0); LYMPH # 1.8 10^3/uL (1.5-4.5); LYMPH % 31.7 % (24.0-44.0); MEAN CORPUSCULAR HEMOGLOBIN 29.9 pg (27.0-33.0); MEAN CORPUSCULAR HGB CONC 33.1 g/dl (32.0-36.5); MEAN CORPUSCULAR VOLUME 90.3 fl (80.0-96.0); MONO # 0.5 10^3/uL (0.0-0.8); MONO % 9.3 % (0.0-5.0); NEUTROPHILS # 3.1 10^3/uL (1.8-7.7); NEUTROPHILS % 55.2 % (36.0-66.0); PLATELET COUNT, AUTOMATED 210 10^3/uL (150-450); RED BLOOD COUNT 5.35 10^6/uL (4.30-6.10); RED CELL DISTRIBUTION WIDTH 12.6 % (11.5-14.5); WHITE BLOOD COUNT 5.6 10^3/uL (4.0-10.0)
[2018-09-24 13:46] LABS: ALBUMIN 3.9 GM/DL (3.2-5.2); ALBUMIN/GLOBULIN RATIO 1.11 (1.00-1.93); ALKALINE PHOSPHATASE 45 U/L (45-117); ALT/SGPT 19 U/L (12-78); ANION GAP 6 MEQ/L (8-16); AST/SGOT 22 U/L (7-37); BILIRUBIN,TOTAL 0.7 MG/DL (0.2-1.0); BLOOD UREA NITROGEN 20 MG/DL (7-18); CALCIUM LEVEL 9.2 MG/DL (8.8-10.2); CARBON DIOXIDE LEVEL 31 MEQ/L (21-32); CHLORIDE LEVEL 103 MEQ/L (98-107); CHOLESTEROL LEVEL 209 MG/DL (<200); CREATININE FOR GFR 1.17 MG/DL (0.70-1.30); GLOMERULAR FILTRATION RATE > 60.0 (>49); GLUCOSE, FASTING 96 MG/DL (70-100); HDL CHOLESTEROL 38 MG/DL (>40); LDL CHOLESTEROL 148 MG/DL (<100); NON-HDL-C 171 MG/DL; POTASSIUM SERUM 4.4 MEQ/L (3.5-5.1); SODIUM LEVEL 140 MEQ/L (136-145); TOTAL PROTEIN 7.4 GM/DL (6.4-8.2); TRIGLYCERIDES LEVEL 117 MG/DL (<150)
[2018-09-25 14:22] LABS: PSA TOTAL 0.6 ng/mL (0.0-4.0)
== END ==
LOC: M SMT 08:28
DX: I10 Essential (primary) hypertension (principal); Z12.5 Encounter for screening for malignant neoplasm of prostate; G47.33 Obstructive sleep apnea (adult) (pediatric)
CPT/HCPCS: 84443

== ENCOUNTER → 2019-04-03 | Outpatient (CLI) | payer OTHER ==
[2019-04-03 10:06] LABS: BASO # 0.1 10^3/uL (0.0-0.2); EOS # 0.1 10^3/uL (0.0-0.50); EOS % 2.6 % (0.0-3.0); HEMATOCRIT 45.5 % (42.0-52.0); HEMOGLOBIN 15.3 g/dl (13.5-17.5); LYMPH # 1.6 10^3/uL (1.5-4.5); LYMPH % 31.8 % (24.0-44.0); MEAN CORPUSCULAR HEMOGLOBIN 29.7 pg (27.0-33.0); MEAN CORPUSCULAR HGB CONC 33.6 g/dl (32.0-36.5); MEAN CORPUSCULAR VOLUME 88.2 fl (80.0-96.0); MONO # 0.5 10^3/uL (0.0-0.8); NEUTROPHILS # 2.6 10^3/uL (1.8-7.7); PLATELET COUNT, AUTOMATED 227 10^3/uL (150-450); RED BLOOD COUNT 5.16 10^6/uL (4.30-6.10); WHITE BLOOD COUNT 4.9 10^3/uL (4.0-10.0)
[2019-04-03 10:23] LABS: BLOOD UREA NITROGEN 18 MG/DL (7-18); CALCIUM LEVEL 8.6 MG/DL (8.8-10.2); CARBON DIOXIDE LEVEL 30 MEQ/L (21-32); CHLORIDE LEVEL 104 MEQ/L (98-107); CHOLESTEROL LEVEL 159 MG/DL (<200); CHOLESTEROL RISK RATIO 4.676 (<5); CREATININE FOR GFR 1.14 MG/DL (0.70-1.30); GLOMERULAR FILTRATION RATE > 60.0 (>49); GLUCOSE, FASTING 96 MG/DL (70-100); HDL CHOLESTEROL 34 MG/DL (>40); LDL CHOLESTEROL 106 MG/DL (<100); NON-HDL-C 125 MG/DL; POTASSIUM SERUM 3.9 MEQ/L (3.5-5.1); SODIUM LEVEL 140 MEQ/L (136-145); TRIGLYCERIDES LEVEL 96 MG/DL (<150)
[2019-04-03 11:07] LABS: HEMOGLOBIN A1c 5.7 %
== END ==
LOC: M SMT 08:03
PROVIDERS: ATTEND Physician Assistant
DX: I10 Essential (primary) hypertension (principal)
CPT/HCPCS: 36415; 80048; 80061; 83036; 85025; G0103

== ENCOUNTER → 2019-04-08 | Outpatient (CLI) | payer OTHER ==
[2019-04-10 00:07] LABS: PSA % FREE 13.5 % (.); PSA FREE 0.54 ng/mL
== END ==
LOC: M SMT 09:05
PROVIDERS: ATTEND Physician Assistant
DX: R97.20 Elevated prostate specific antigen [PSA] (principal)

== ENCOUNTER → 2019-04-23 | Outpatient (REF) | payer OTHER | LOC: M SMT 12:44 | PROVIDERS: ATTEND Nurse Practitioner Family | DX: R97.20 Elevated prostate specific antigen [PSA] (principal) ==

== ENCOUNTER → 2019-05-20 | Outpatient (CLI) | payer OTHER ==
[2019-05-21 14:22] LABS: PSA TOTAL 1.1 ng/mL (0.0-4.0)
== END ==
LOC: M SMT 08:59
PROVIDERS: ATTEND Nurse Practitioner Family
DX: R97.20 Elevated prostate specific antigen [PSA] (principal)

== ENCOUNTER → 2019-10-06 | Outpatient (CLI) | payer OTHER ==
[~2019-10-06] MED LIST changes: -OMEP40CA2 PO; +OMEP40CA97 PO
[2019-10-06 14:19] LABS: ALBUMIN 4.1 GM/DL (3.2-5.2); ALT/SGPT 19 U/L (12-78); BILIRUBIN,TOTAL 0.9 MG/DL (0.2-1.0); BLOOD UREA NITROGEN 20 MG/DL (7-18); CALCIUM LEVEL 9.3 MG/DL (8.8-10.2); CARBON DIOXIDE LEVEL 29 MEQ/L (21-32); CHLORIDE LEVEL 104 MEQ/L (98-107); CHOLESTEROL LEVEL 188 MG/DL (<200); CHOLESTEROL RISK RATIO 4.476 (<5); CREATININE FOR GFR 1.21 MG/DL (0.70-1.30); GLOMERULAR FILTRATION RATE > 60.0 (>49); GLUCOSE, FASTING 95 MG/DL (70-100); HDL CHOLESTEROL 42 MG/DL (>40); LDL CHOLESTEROL 124 MG/DL (<100); NON-HDL-C 146 MG/DL; POTASSIUM SERUM 4.7 MEQ/L (3.5-5.1); SODIUM LEVEL 140 MEQ/L (136-145); TOTAL PROTEIN 7.6 GM/DL (6.4-8.2); TRIGLYCERIDES LEVEL 112 MG/DL (<150)
[2019-10-06 14:52] LABS: HEMOGLOBIN A1c 5.7 %
== END ==
LOC: M PLALAB 09:32
PROVIDERS: ATTEND Physician Assistant
DX: E78.00 Pure hypercholesterolemia, unspecified (principal)

== ENCOUNTER → 2020-04-08 | Outpatient (CLI) | payer OTHER ==
[2020-04-08 11:37] LABS: ALT/SGPT 19 U/L (12-78); BILIRUBIN,TOTAL 0.7 MG/DL (0.2-1.0); BLOOD UREA NITROGEN 23 MG/DL (7-18); CALCIUM LEVEL 8.9 MG/DL (8.8-10.2); CARBON DIOXIDE LEVEL 28 MEQ/L (21-32); CHLORIDE LEVEL 106 MEQ/L (98-107); CREATININE FOR GFR 1.06 MG/DL (0.70-1.30); GLOMERULAR FILTRATION RATE > 60.0 (>49); GLUCOSE, FASTING 86 MG/DL (70-100); POTASSIUM SERUM 4.4 MEQ/L (3.5-5.1); SODIUM LEVEL 138 MEQ/L (136-145); TOTAL PROTEIN 7.4 GM/DL (6.4-8.2)
[2020-04-08 11:44] LABS: HEMOGLOBIN A1c 5.6 %
== END ==
LOC: M PLALAB 08:07
PROVIDERS: ATTEND Physician Assistant
DX: R73.01 Impaired fasting glucose (principal)

== ENCOUNTER → 2020-05-27 | Outpatient (CLI) | payer OTHER | LOC: M PLALAB 08:06 | PROVIDERS: ATTEND Nurse Practitioner Family | DX: Z12.5 Encounter for screening for malignant neoplasm of prostate (principal) ==

== ENCOUNTER → 2020-10-11 | Outpatient (CLI) | payer OTHER ==
[2020-10-11 11:21] LABS: HEMOGLOBIN A1c 5.5 %
[2020-10-11 11:38] LABS: ALBUMIN 3.8 GM/DL (3.2-5.2); ALT/SGPT 16 U/L (12-78); BILIRUBIN,TOTAL 0.6 MG/DL (0.2-1.0); BLOOD UREA NITROGEN 20 MG/DL (7-18); CARBON DIOXIDE LEVEL 28 MEQ/L (21-32); CHLORIDE LEVEL 106 MEQ/L (98-107); CHOLESTEROL LEVEL 191 MG/DL (<200); CHOLESTEROL RISK RATIO 4.775 (<5); CREATININE FOR GFR 1.21 MG/DL (0.70-1.30); GLOMERULAR FILTRATION RATE > 60.0 (>49); GLUCOSE, FASTING 86 MG/DL (70-100); HDL CHOLESTEROL 40 MG/DL (>40); LDL CHOLESTEROL 126 MG/DL (<100); NON-HDL-C 151 MG/DL; POTASSIUM SERUM 4.4 MEQ/L (3.5-5.1); SODIUM LEVEL 139 MEQ/L (136-145); TOTAL PROTEIN 6.5 GM/DL (6.4-8.2); TRIGLYCERIDES LEVEL 124 MG/DL (<150)
[2020-10-11 11:43] LABS: TOTAL 25(OH) VITAMIN D 44.2 NG/ML (30.0-100.0)
== END ==
LOC: M PLALAB 08:10
PROVIDERS: ATTEND Family Medicine
DX: Z12.5 Encounter for screening for malignant neoplasm of prostate (principal); E78.00 Pure hypercholesterolemia, unspecified; E55.9 Vitamin D deficiency, unspecified; R73.01 Impaired fasting glucose

== ENCOUNTER → 2021-04-12 | Outpatient (CLI) | payer OTHER ==
[2021-04-12 13:35] LABS: BASO # 0.1 10^3/uL (0.0-0.2); BASO % 1.2 % (0.0-1.0); EOS # 0.2 10^3/uL (0.0-0.5); EOS % 4.7 % (0.0-3.0); HEMATOCRIT 44.3 % (42.0-52.0); HEMOGLOBIN 14.2 g/dl (13.5-17.5); LYMPH # 1.4 10^3/uL (1.5-5.0); LYMPH % 32.9 % (24.0-44.0); MEAN CORPUSCULAR HEMOGLOBIN 29.3 pg (27.0-33.0); MEAN CORPUSCULAR HGB CONC 32.1 g/dl (32.0-36.5); MEAN CORPUSCULAR VOLUME 91.3 fl (80.0-96.0); MONO # 0.5 10^3/uL (0.0-0.8); MONO % 11.5 % (2.0-8.0); NEUTROPHILS # 2.1 10^3/uL (1.5-8.5); NEUTROPHILS % 49.5 % (36.0-66.0); PLATELET COUNT, AUTOMATED 194 10^3/uL (150-450); RED BLOOD COUNT 4.85 10^6/uL (4.30-6.10); WHITE BLOOD COUNT 4.3 10^3/uL (4.0-10.0)
[2021-04-12 14:05] LABS: ALBUMIN 3.7 GM/DL (3.2-5.2); ALT/SGPT 34 U/L (12-78); BILIRUBIN,TOTAL 0.7 MG/DL (0.2-1.0); BLOOD UREA NITROGEN 20 MG/DL (7-18); CALCIUM LEVEL 9.1 MG/DL (8.8-10.2); CARBON DIOXIDE LEVEL 28 MEQ/L (21-32); CHLORIDE LEVEL 105 MEQ/L (98-107); CHOLESTEROL LEVEL 156 MG/DL (<200); GLOMERULAR FILTRATION RATE > 60.0 (>49); GLUCOSE, FASTING 88 MG/DL (70-100); HDL CHOLESTEROL 39 MG/DL (>40); LDL CHOLESTEROL 102 MG/DL (<100); NON-HDL-C 117 MG/DL; POTASSIUM SERUM 4.5 MEQ/L (3.5-5.1); SODIUM LEVEL 138 MEQ/L (136-145); TOTAL PROTEIN 6.7 GM/DL (6.4-8.2); TRIGLYCERIDES LEVEL 77 MG/DL (<150)
[2021-04-12 14:08] LABS: TOTAL 25(OH) VITAMIN D 39.4 NG/ML (30.0-100.0)
[2021-04-12 14:28] LABS: HEMOGLOBIN A1c 5.6 %
== END ==
LOC: M PLALAB 09:00
PROVIDERS: ATTEND Physician Assistant
DX: E55.9 Vitamin D deficiency, unspecified (principal); G47.33 Obstructive sleep apnea (adult) (pediatric); R73.01 Impaired fasting glucose; E78.00 Pure hypercholesterolemia, unspecified

== ENCOUNTER → 2021-05-30 | Outpatient (CLI) | payer OTHER ==
[~2021-05-30] MED LIST changes: +OMEP40CA4 PO; -OMEP40CA97 PO
== END ==
LOC: M PLALAB 08:32
PROVIDERS: ATTEND Nurse Practitioner Family
DX: R97.20 Elevated prostate specific antigen [PSA] (principal)
CPT/HCPCS: 36415; G0103

== ENCOUNTER → 2021-10-16 | Outpatient (CLI) | payer MEDICARE, OTHER ==
[2021-10-16 10:38] LABS: BASO % 0.8 % (0.0-1.0); EOS # 0.2 10^3/uL (0.0-0.5); EOS % 4.9 % (0.0-3.0); HEMATOCRIT 43.7 % (42.0-52.0); HEMOGLOBIN 14.3 g/dl (13.5-17.5); LYMPH # 1.8 10^3/uL (1.5-5.0); LYMPH % 36.3 % (24.0-44.0); MEAN CORPUSCULAR HEMOGLOBIN 29.1 pg (27.0-33.0); MEAN CORPUSCULAR HGB CONC 32.7 g/dl (32.0-36.5); MONO # 0.7 10^3/uL (0.0-0.8); MONO % 13.3 % (2.0-8.0); NEUTROPHILS # 2.2 10^3/uL (1.5-8.5); NEUTROPHILS % 44.5 % (36.0-66.0); PLATELET COUNT, AUTOMATED 181 10^3/uL (150-450); RED BLOOD COUNT 4.91 10^6/uL (4.30-6.10); WHITE BLOOD COUNT 4.9 10^3/uL (4.0-10.0)
[2021-10-16 11:58] LABS: ALBUMIN 3.9 GM/DL (3.2-5.2); ALT/SGPT 24 U/L (12-78); BILIRUBIN,TOTAL 0.5 MG/DL (0.2-1.0); BLOOD UREA NITROGEN 18 MG/DL (7-18); CALCIUM LEVEL 8.8 MG/DL (8.8-10.2); CARBON DIOXIDE LEVEL 24 MEQ/L (21-32); CHLORIDE LEVEL 106 MEQ/L (98-107); CHOLESTEROL LEVEL 162 MG/DL (<200); CHOLESTEROL RISK RATIO 4.378 (<5); GLOMERULAR FILTRATION RATE > 60.0 (>49); GLUCOSE, FASTING 94 MG/DL (70-100); HDL CHOLESTEROL 37 MG/DL (>40); LDL CHOLESTEROL 104 MG/DL (<100); NON-HDL-C 125 MG/DL; POTASSIUM SERUM 4.1 MEQ/L (3.5-5.1); SODIUM LEVEL 138 MEQ/L (136-145); TOTAL 25(OH) VITAMIN D 37.2 NG/ML (30.0-100.0); TOTAL PROTEIN 7.2 GM/DL (6.4-8.2); TRIGLYCERIDES LEVEL 104 MG/DL (<150)
[2021-10-16 13:57] LABS: HEMOGLOBIN A1c 5.5 %
[2021-10-17 23:07] LABS: PSA TOTAL 0.8 ng/mL (0.0-4.0)
== END ==
LOC: M PLALAB 07:52
PROVIDERS: ATTEND Family Medicine
DX: Z00.00 Encounter for general adult medical examination without abnormal findings (principal); E78.00 Pure hypercholesterolemia, unspecified; E66.01 Morbid (severe) obesity due to excess calories; E55.9 Vitamin D deficiency, unspecified; Z12.5 Encounter for screening for malignant neoplasm of prostate; Z13.0 Encounter for screening for diseases of the blood and blood-forming organs and certain disorders involving the immune mechanism; Z79.899 Other long term (current) drug therapy; R97.20 Elevated prostate specific antigen [PSA]

== ENCOUNTER → 2021-12-15 | Outpatient (CLI) | payer MEDICARE, OTHER | LOC: M RAD 08:49 | PROVIDERS: ATTEND Physician Assistant | DX: I82.812 Embolism and thrombosis of superficial veins of left lower extremity (principal); M79.662 Pain in left lower leg ==

== ENCOUNTER → 2021-12-28 | Outpatient (CLI) | payer MEDICARE, OTHER | LOC: M RAD 15:17 | PROVIDERS: ATTEND Family Medicine | DX: I80.02 Phlebitis and thrombophlebitis of superficial vessels of left lower extremity (principal) ==

== ENCOUNTER → 2022-01-17 | Outpatient (CLI) | payer MEDICARE, OTHER ==
[2022-01-17 10:58] LABS: BASO # 0.1 10^3/uL (0.0-0.2); BASO % 0.8 % (0.0-1.0); EOS # 0.1 10^3/uL (0.0-0.5); EOS % 1.5 % (0.0-3.0); HEMATOCRIT 43.2 % (42.0-52.0); HEMOGLOBIN 14.1 g/dl (13.5-17.5); LYMPH # 1.3 10^3/uL (1.5-5.0); LYMPH % 21.3 % (24.0-44.0); MEAN CORPUSCULAR HEMOGLOBIN 28.7 pg (27.0-33.0); MEAN CORPUSCULAR HGB CONC 32.6 g/dl (32.0-36.5); MONO # 0.6 10^3/uL (0.0-0.8); MONO % 9.4 % (2.0-8.0); NEUTROPHILS % 66.7 % (36.0-66.0); PLATELET COUNT, AUTOMATED 220 10^3/uL (150-450); RED BLOOD COUNT 4.91 10^6/uL (4.30-6.10)
[2022-01-17 11:20] LABS: HEMOGLOBIN A1c 5.6 %
[2022-01-17 11:39] LABS: ALBUMIN 3.9 GM/DL (3.2-5.2); ALT/SGPT 20 U/L (12-78); BILIRUBIN,TOTAL 0.7 MG/DL (0.2-1.0); BLOOD UREA NITROGEN 22 MG/DL (7-18); CARBON DIOXIDE LEVEL 28 MEQ/L (21-32); CHLORIDE LEVEL 106 MEQ/L (98-107); CHOLESTEROL LEVEL 171 MG/DL (<200); CHOLESTEROL RISK RATIO 4.621 (<5); CREATININE FOR GFR 1.16 MG/DL (0.70-1.30); GLOMERULAR FILTRATION RATE > 60.0 (>49); GLUCOSE, FASTING 96 MG/DL (70-100); HDL CHOLESTEROL 37 MG/DL (>40); LDL CHOLESTEROL 122 MG/DL (<100); NON-HDL-C 134 MG/DL; POTASSIUM SERUM 4.2 MEQ/L (3.5-5.1); SODIUM LEVEL 138 MEQ/L (136-145); TOTAL PROTEIN 7.2 GM/DL (6.4-8.2); TRIGLYCERIDES LEVEL 62 MG/DL (<150)
== END ==
LOC: M PLALAB 07:38
PROVIDERS: ATTEND Family Medicine
DX: E78.00 Pure hypercholesterolemia, unspecified (principal); R73.01 Impaired fasting glucose

== ENCOUNTER → 2022-04-13 | Outpatient (CLI) | payer MEDICARE, OTHER ==
[2022-04-13 12:01] LABS: BLOOD UREA NITROGEN 22 MG/DL (7-18); CALCIUM LEVEL 9.1 MG/DL (8.8-10.2); CARBON DIOXIDE LEVEL 28 MEQ/L (21-32); CHLORIDE LEVEL 107 MEQ/L (98-107); CREATININE FOR GFR 1.22 MG/DL (0.70-1.30); GLOMERULAR FILTRATION RATE > 60.0 (>49); GLUCOSE, FASTING 93 MG/DL (70-100); POTASSIUM SERUM 4.6 MEQ/L (3.5-5.1); SODIUM LEVEL 140 MEQ/L (136-145)
== END ==
LOC: M PLALAB 07:48
PROVIDERS: ATTEND Physician Assistant
DX: I50.32 Chronic diastolic (congestive) heart failure (principal)

== ENCOUNTER → 2022-05-29 | Outpatient (CLI) | payer MEDICARE, OTHER | LOC: M PLALAB 07:39 | PROVIDERS: ATTEND Nurse Practitioner Family | DX: R97.20 Elevated prostate specific antigen [PSA] (principal) | CPT/HCPCS: 36415; G0103 ==

== ENCOUNTER → 2022-12-19 | Outpatient (CLI) | payer MEDICARE, OTHER ==
[2022-12-19 11:25] LABS: BILIRUBIN,TOTAL 1.2 MG/DL (0.3-1.2); CALCIUM LEVEL 9.3 MG/DL (8.3-10.6); CHOLESTEROL RISK RATIO 4.6 (<5); CREATININE FOR GFR 1.28 MG/DL (0.70-1.30); GLOMERULAR FILTRATION RATE 59.9 (>49); HDL CHOLESTEROL 38.4 MG/DL (>40); POTASSIUM SERUM 4.3 MMOL/L (3.5-5.1); TOTAL PROTEIN 6.9 G/DL (5.7-8.2)
== END ==
LOC: M PLALAB 07:37
PROVIDERS: ATTEND Physician Assistant
DX: I50.32 Chronic diastolic (congestive) heart failure (principal)

== ENCOUNTER → 2022-12-24 | Outpatient (REF) | payer MEDICARE, OTHER | LOC: M LAB REF 17:08 | PROVIDERS: ATTEND Family Medicine | DX: R31.0 Gross hematuria (principal) ==

== ENCOUNTER → 2022-12-31 | Outpatient (REF) | payer MEDICARE, OTHER ==
[2022-12-31 14:01] LABS: APPEARANCE, URINE CLEAR (CLEAR); BACTERIA, URINE AUTO NEGATIVE (NEGATIVE); BILIRUBIN, URINE AUTO NEGATIVE (NEGATIVE); BLOOD, URINE BLOOD NEGATIVE (NEGATIVE); COLOR, URINE YELLOW (YELLOW); GLUCOSE, URINE (UA) AUTO NEGATIVE (NEGATIVE); KETONE, URINE AUTO NEGATIVE (NEGATIVE); LEUKOCYTE ESTERASE, URINE AUTO NEGATIVE (NEGATIVE); NITRITE, URINE AUTO NEGATIVE (NEGATIVE); PROTEIN, URINE AUTO NEGATIVE (NEGATIVE); RBC, URINE AUTO 1 /HPF (0-3); SQUAMOUS EPITHELIAL CELL UR AU 0 /HPF (0-6); UROBILINOGEN, URINE AUTO 0.2 mg/dL (0.0-2.0); WBC, URINE AUTO 0 /HPF (0-3)
== END ==
LOC: M SMT 13:06
PROVIDERS: ATTEND Physician Assistant
DX: R31.0 Gross hematuria (principal)

== ENCOUNTER → 2023-01-07 | Outpatient (REF) | payer MEDICARE, OTHER ==
[2023-01-07 17:50] LABS: APPEARANCE, URINE CLEAR (CLEAR); BACTERIA, URINE AUTO NEGATIVE (NEGATIVE); BILIRUBIN, URINE AUTO NEGATIVE (NEGATIVE); BLOOD, URINE BLOOD 1+ (NEGATIVE); COLOR, URINE STRAW (YELLOW); GLUCOSE, URINE (UA) AUTO NEGATIVE (NEGATIVE); KETONE, URINE AUTO NEGATIVE (NEGATIVE); LEUKOCYTE ESTERASE, URINE AUTO NEGATIVE (NEGATIVE); NITRITE, URINE AUTO NEGATIVE (NEGATIVE); PROTEIN, URINE AUTO NEGATIVE (NEGATIVE); RBC, URINE AUTO 1 /HPF (0-3); SPECIFIC GRAVITY URINE AUTO 1.008 (1.002-1.035); SQUAMOUS EPITHELIAL CELL UR AU 0 /HPF (0-6); UROBILINOGEN, URINE AUTO 0.2 mg/dL (0.0-2.0); WBC, URINE AUTO 0 /HPF (0-3)
== END ==
LOC: M SMT 17:12
PROVIDERS: ATTEND Urology
DX: R31.0 Gross hematuria (principal)

== ENCOUNTER → 2023-01-10 | Outpatient (CLI) | payer MEDICARE, OTHER ==
[~2023-01-10] MED LIST changes: +ISOVUE-370 76% 100ML VIAL As Ordered ONE
== END ==
LOC: M RAD 08:35
PROVIDERS: ATTEND Family Medicine
DX: R31.0 Gross hematuria (principal); N28.1 Cyst of kidney, acquired; Q44.6 Cystic disease of liver
CPT/HCPCS: 74178; Q9967

== ENCOUNTER → 2023-01-30 | Outpatient (CLI) | payer MEDICARE, OTHER ==
[~2023-01-30] MED LIST changes: -ISOVUE-370 76% 100ML VIAL As Ordered ONE
== END ==
LOC: M PLALAB 07:36
PROVIDERS: ATTEND Family Medicine
DX: Z12.5 Encounter for screening for malignant neoplasm of prostate (principal)
CPT/HCPCS: 36415; G0103

== ENCOUNTER → 2023-06-10 | Outpatient (CLI) | payer MEDICARE, OTHER | LOC: M PLALAB 07:46 | PROVIDERS: ATTEND Physician Assistant | DX: R97.20 Elevated prostate specific antigen [PSA] (principal) ==

== ENCOUNTER → 2023-06-14 | Outpatient (CLI) | payer MEDICARE, OTHER ==
[2023-06-14 10:50] LABS: BASO # 0.1 10^3/uL (0.0-0.2); EOS # 0.1 10^3/uL (0.0-0.5); EOS % 2.8 % (0.0-3.0); HEMATOCRIT 45.1 % (42.0-52.0); LYMPH # 1.5 10^3/uL (1.5-5.0); LYMPH % 29.3 % (24.0-44.0); MEAN CORPUSCULAR HEMOGLOBIN 29.8 pg (27.0-33.0); MEAN CORPUSCULAR HGB CONC 33.3 g/dl (32.0-36.5); MEAN CORPUSCULAR VOLUME 89.7 fl (80.0-96.0); MONO # 0.6 10^3/uL (0.0-0.8); MONO % 12.4 % (2.0-8.0); NEUTROPHILS # 2.7 10^3/uL (1.5-8.5); NEUTROPHILS % 54.3 % (36.0-66.0); PLATELET COUNT, AUTOMATED 189 10^3/uL (150-450); RED BLOOD COUNT 5.03 10^6/uL (4.30-6.10)
[2023-06-14 11:28] LABS: ALBUMIN 4.1 G/DL (3.2-5.2); ALKALINE PHOSPHATASE 46 U/L (46-116); ALT/SGPT 18 U/L (7.0-40); AST/SGOT 22 U/L (<34); BILIRUBIN,TOTAL 0.9 MG/DL (0.3-1.2); BLOOD UREA NITROGEN 22 MG/DL (9-23); CALCIUM LEVEL 9.1 MG/DL (8.3-10.6); CARBON DIOXIDE LEVEL 25 MMOL/L (20-31); CHLORIDE LEVEL 105 MMOL/L (98-107); CHOLESTEROL LEVEL 148 MG/DL (<200); CHOLESTEROL RISK RATIO 3.77 (<5); CREATININE FOR GFR 1.18 MG/DL (0.70-1.30); GLOMERULAR FILTRATION RATE > 60.0 (>49); GLUCOSE, FASTING 99 MG/DL (74-106); HDL CHOLESTEROL 39.2 MG/DL (>40); LDL CHOLESTEROL 93.4 MG/DL (<100); NON-HDL-C 108.8 MG/DL; POTASSIUM SERUM 4.4 MMOL/L (3.5-5.1); SODIUM LEVEL 140 MMOL/L (136-145); TOTAL PROTEIN 6.7 G/DL (5.7-8.2); TRIGLYCERIDES LEVEL 77 MG/DL (<150)
[2023-06-14 11:31] LABS: THYROID STIMULATING HORMONE 2.967 uIU/ML (0.55-4.78); TOTAL 25(OH) VITAMIN D 42.7 NG/ML (20.0-100.0)
== END ==
LOC: M PLALAB 07:08
PROVIDERS: ATTEND Family Medicine
DX: E55.9 Vitamin D deficiency, unspecified (principal); E78.00 Pure hypercholesterolemia, unspecified
CPT/HCPCS: 36415; 80053; 80061; 82306; 84439; 84443; 85025; G0103

== ENCOUNTER → 2024-01-08 | Outpatient (CLI) | payer MEDICARE, OTHER ==
[2024-01-08 12:01] LABS: CHOLESTEROL RISK RATIO 3.58 (<5); HDL CHOLESTEROL 39.1 MG/DL (>40); LDL CHOLESTEROL 88.7 MG/DL (<100); NON-HDL-C 100.9 MG/DL
== END ==
LOC: M PLALAB 07:47
PROVIDERS: ATTEND Physician Assistant
DX: E78.00 Pure hypercholesterolemia, unspecified (principal)

== ENCOUNTER → 2024-01-20 | Outpatient (CLI) | payer MEDICARE, OTHER | LOC: M PLAIMG 09:45 | PROVIDERS: ATTEND Physician Assistant | DX: I77.810 Thoracic aortic ectasia (principal) ==

== ENCOUNTER → 2024-06-11 | Outpatient (CLI) | payer MEDICARE, OTHER ==
[~2024-06-11] MED LIST changes: +LANS15CA PO; +LEXA1TAB PO; +LIPI10TA PO; +LOSA50TA28 PO
== END ==
LOC: M PLALAB 07:29
PROVIDERS: ATTEND Physician Assistant
DX: R97.20 Elevated prostate specific antigen [PSA] (principal)

== ENCOUNTER → 2024-06-16 | Outpatient (REF) | payer MEDICARE, OTHER ==
[2024-06-16 14:51] LABS: APPEARANCE, URINE CLEAR (CLEAR); BACTERIA, URINE AUTO NEGATIVE (NEGATIVE); BILIRUBIN, URINE AUTO NEGATIVE (NEGATIVE); BLOOD, URINE BLOOD NEGATIVE (NEGATIVE); COLOR, URINE YELLOW (YELLOW); GLUCOSE, URINE (UA) AUTO NEGATIVE (NEGATIVE); KETONE, URINE AUTO NEGATIVE (NEGATIVE); LEUKOCYTE ESTERASE, URINE AUTO NEGATIVE (NEGATIVE); NITRITE, URINE AUTO NEGATIVE (NEGATIVE); PROTEIN, URINE AUTO NEGATIVE (NEGATIVE); RBC, URINE AUTO 1 /HPF (0-3); SPECIFIC GRAVITY URINE AUTO 1.012 (1.002-1.035); SQUAMOUS EPITHELIAL CELL UR AU 1 /HPF (0-6); UROBILINOGEN, URINE AUTO 0.2 mg/dL (0.0-2.0); WBC, URINE AUTO 4 /HPF (0-3)
== END ==
LOC: M SMT 12:38
PROVIDERS: ATTEND Physician Assistant
DX: Z87.898 Personal history of other specified conditions (principal)

== ENCOUNTER → 2024-08-03 | Outpatient (CLI) | payer MEDICARE, OTHER ==
[2024-08-03 11:27] LABS: BASO # 0.1 10^3/uL (0.0-0.2); BASO % 1.1 % (0.0-1.0); EOS # 0.1 10^3/uL (0.0-0.5); EOS % 2.4 % (0.0-3.0); HEMATOCRIT 45.6 % (42.0-52.0); HEMOGLOBIN 15.2 g/dl (13.5-17.5); LYMPH # 1.4 10^3/uL (1.5-5.0); LYMPH % 26.4 % (24.0-44.0); MEAN CORPUSCULAR HEMOGLOBIN 30.3 pg (27.0-33.0); MEAN CORPUSCULAR HGB CONC 33.3 g/dl (32.0-36.5); MEAN CORPUSCULAR VOLUME 90.8 fl (80.0-96.0); MONO # 0.7 10^3/uL (0.0-0.8); NEUTROPHILS # 3.1 10^3/uL (1.5-8.5); NEUTROPHILS % 57.5 % (36.0-66.0); PLATELET COUNT, AUTOMATED 203 10^3/uL (150-450); RED BLOOD COUNT 5.02 10^6/uL (4.30-6.10); WHITE BLOOD COUNT 5.4 10^3/uL (4.0-10.0)
[2024-08-03 11:51] LABS: HEMOGLOBIN A1c 5.4 % (4.0-6.0)
[2024-08-03 12:00] LABS: ALBUMIN 3.9 G/DL (3.2-5.2); ALKALINE PHOSPHATASE 44 U/L (46-116); ALT/SGPT 24 U/L (7.0-40); AST/SGOT 21 U/L (<34); BILIRUBIN,TOTAL 0.6 MG/DL (0.3-1.2); BLOOD UREA NITROGEN 19 MG/DL (9-23); CALCIUM LEVEL 8.8 MG/DL (8.3-10.6); CARBON DIOXIDE LEVEL 28 MMOL/L (20-31); CHLORIDE LEVEL 105 MMOL/L (98-107); CHOLESTEROL LEVEL 158 MG/DL (<200); CHOLESTEROL RISK RATIO 3.64 (<5); CREATININE FOR GFR 1.21 MG/DL (0.70-1.30); GLOMERULAR FILTRATION RATE > 60.0 (>49); GLUCOSE, FASTING 94 MG/DL (74-106); HDL CHOLESTEROL 43.4 MG/DL (>40); LDL CHOLESTEROL 99.6 MG/DL (<100); NON-HDL-C 114.6 MG/DL; POTASSIUM SERUM 4.6 MMOL/L (3.5-5.1); SODIUM LEVEL 137 MMOL/L (136-145); TOTAL PROTEIN 6.8 G/DL (5.7-8.2); TRIGLYCERIDES LEVEL 75 MG/DL (<150)
[2024-08-03 12:01] LABS: FREE T4 1.31 NG/DL (0.89-1.76)
[2024-08-03 12:02] LABS: TOTAL 25(OH) VITAMIN D 35.7 NG/ML (20.0-100.0)
== END ==
LOC: M PLALAB 07:44
PROVIDERS: ATTEND Physician Assistant
DX: E78.00 Pure hypercholesterolemia, unspecified (principal); E55.9 Vitamin D deficiency, unspecified; R73.01 Impaired fasting glucose; I10 Essential (primary) hypertension

== ENCOUNTER → 2024-12-16 | Outpatient (CLI) | payer MEDICARE, OTHER | LOC: M PLAIMG 15:21 | PROVIDERS: ATTEND Physician Assistant | DX: M25.562 Pain in left knee (principal); M17.12 Unilateral primary osteoarthritis, left knee ==

== ENCOUNTER → 2025-02-19 | Outpatient (CLI) | payer MEDICARE, OTHER ==
[2025-02-19 10:56] LABS: CREATININE FOR GFR 1.12 MG/DL (0.70-1.30); GLOMERULAR FILTRATION RATE 71.6 (>49); POTASSIUM SERUM 4.6 MMOL/L (3.5-5.1)
== END ==
LOC: M PLALAB 07:30
PROVIDERS: ATTEND Physician Assistant
DX: I50.32 Chronic diastolic (congestive) heart failure (principal)

== ENCOUNTER → 2025-07-29 | Outpatient (REF) | payer MEDICARE, OTHER ==
[2025-07-29 15:10] LABS: APPEARANCE, URINE HAZY (CLEAR); BACTERIA, URINE AUTO NEGATIVE (NEGATIVE); BILIRUBIN, URINE AUTO NEGATIVE (NEGATIVE); BLOOD, URINE BLOOD 3+ (NEGATIVE); GLUCOSE, URINE (UA) AUTO NEGATIVE (NEGATIVE); KETONE, URINE AUTO NEGATIVE (NEGATIVE); LEUKOCYTE ESTERASE, URINE AUTO NEGATIVE (NEGATIVE); MUCUS, URINE SMALL (NEGATIVE); NITRITE, URINE AUTO NEGATIVE (NEGATIVE); PROTEIN, URINE AUTO 1+ mg/dL (NEGATIVE); RBC, URINE AUTO TNTC /HPF (0-3); SPECIFIC GRAVITY URINE AUTO 1.023 (1.002-1.035); SQUAMOUS EPITHELIAL CELL UR AU 0 /HPF (0-6); UROBILINOGEN, URINE AUTO 0.2 mg/dL (0.0-2.0); WBC, URINE AUTO 3 /HPF (0-3)
== END ==
LOC: M LAB REF 13:28
PROVIDERS: ATTEND Physician Assistant
DX: Z87.898 Personal history of other specified conditions (principal)

== ENCOUNTER → 2025-08-03 | Outpatient (CLI) | payer MEDICARE, OTHER ==
[2025-08-03 11:00] LABS: BASO # 0.1 10^3/uL (0.0-0.2); BASO % 1.2 % (0.0-1.0); EOS # 0.2 10^3/uL (0.0-0.5); EOS % 3.7 % (0.0-3.0); LYMPH # 1.4 10^3/uL (1.5-5.0); LYMPH % 29.4 % (24.0-44.0); MONO # 0.7 10^3/uL (0.0-0.8); MONO % 13.4 % (2.0-8.0); NEUTROPHILS # 2.5 10^3/uL (1.5-8.5); NEUTROPHILS % 52.1 % (36.0-66.0); PLATELET COUNT, AUTOMATED 212 10^3/uL (150-450)
[2025-08-03 11:10] LABS: ALT/SGPT 13.0 U/L (7.0-40); AST/SGOT 21.0 U/L (<34); CALCIUM LEVEL 9.0 MG/DL (8.3-10.6); CARBON DIOXIDE LEVEL 25.0 MMOL/L (20-31); CHLORIDE LEVEL 105.0 MMOL/L (98-107); CHOLESTEROL LEVEL 145.0 MG/DL (<200); CHOLESTEROL RISK RATIO 3.58 (<5); CREATININE FOR GFR 1.23 MG/DL (0.70-1.30); GLOMERULAR FILTRATION RATE 63.6 (>49); LDL CHOLESTEROL 91.7 MG/DL (<100); NON-HDL-C 104.5 MG/DL; POTASSIUM SERUM 4.3 MMOL/L (3.5-5.1); PSA SCREENING 1.38 NG/ML (< 4.00); SODIUM LEVEL 139.0 MMOL/L (136-145); TRIGLYCERIDES LEVEL 64.0 MG/DL (<150)
[2025-08-03 11:24] LABS: ESTIMATED AVERAGE GLUCOSE 108.0 MG/DL (60-110)
== END ==
LOC: M PLALAB 07:39
PROVIDERS: ATTEND Physician Assistant
DX: R73.01 Impaired fasting glucose (principal); E78.00 Pure hypercholesterolemia, unspecified; Z79.899 Other long term (current) drug therapy; Z12.5 Encounter for screening for malignant neoplasm of prostate
CPT/HCPCS: 36415; 80053; 80061; 83036; 85025; G0103